=== PATIENT | female | born 1935 | race Hispanic/Latino ===

== ENCOUNTER 2017-06-05 16:45 | Emergency (ER) | payer MEDICARE ==
[2017-06-05 17:51] LABS: #Basophils 0.1 thou/uL (0.0-0.2); #Eosinphils 0.2 thou/uL (0.0-0.7); #Lymphocytes 2.6 thou/uL (1.20-3.40); #Monocytes 0.6 thou/uL (0.11-0.59); #Neutrophils 5.1 thou/uL (1.40-6.50); %Basophils 1.3 % (0.0-1.0); %Eosinophils 2.2 % (0.0-10.0); %Monocytes 7.1 % (0.0-10.0); %Neutrophils 59.3 % (42.0-75.0); Hemoglobin 13.9 g/dL (12.0-16.0); Mean Corpuscular HGB CONC 33.8 g/dL (32.0-36.0); Mean Corpuscular Hemoglobin 31.1 pg (27.0-31.0); Platelet Count 153 thou/uL (130-400); RBC Distribution Width 13.1 % (11.5-14.5); Red Blood Cell (RBC) Count 4.46 mill/uL (4.20-5.40); White Blood Cell (WBC) Count 8.6 thou/uL (4.8-10.8)
[2017-06-05 17:57] LABS: Prothrombin Time 13.7 SEC (12.0-14.7)
[2017-06-05 17:58] LABS: PTT 36.4 SEC (22.9-36.1)
[2017-06-05 18:11] LABS: Anion Gap 12 mmol/L (10-20); Bilirubin, Total 0.7 mg/dL (0.2-1.2); Calcium 9.4 mg/dL (7.8-10.44); Carbon Dioxide 24 mmol/L (23-31); Chloride 107 mmol/L (98-107); Potassium 4.1 mmol/L (3.5-5.1); Protein, Total 7.2 g/dL (6.0-8.3); Sodium 139 mmol/L (136-145)
[2017-06-05 18:13] LABS: AST (SGOT) 14 U/L (5-34)
[2017-06-05 18:23] LABS: ALT (SGPT) 15 U/L (8-55); Albumin 4.4 g/dL (3.4-4.8); Alkaline Phosphatase 61 U/L (40-150); BUN (Urea Nitrogen) 18 mg/dL (9.8-20.1); Calc. Creatinine Clearance 0 mL/min (70-130); Estimated GFR-MDRD 69; Globulin 2.9 g/dL (2.4-3.5); Glucose 103 mg/dL (83-110)
== END 2017-06-05 19:05 | disposition home or self-care (01) ==
LOC: ERS 16:45
DX: R21 Rash and other nonspecific skin eruption (principal); I10 Essential (primary) hypertension
CPT/HCPCS: 36415; 80053; 85025; 85610; 85730; 99283

== ENCOUNTER 2019-06-08 20:45 | Inpatient (IN) | payer MEDICARE ==
[2019-06-08 22:21] LABS: Bilirubin Negative (Negative); Blood, Urine Negative (Negative); Clarity Clear (Clear); Glucose, Urine (Dipstick) Normal (Negative); Leukocyte 250 Leu/uL (Negative); Mucous/LPF 2+ LPF (<2+); Nitrite Negative (Negative); Protein, Urine (Dipstick) 30 mg/dL (Neg-Trace); Squamous Epithelial 0-3 HPF (0-3); Urobilinogen Normal mg/dL (Less than 2)
[2019-06-08 22:27] LABS: Bacteria/HPF 1+ HPF (None Seen)
[2019-06-08 22:28] LABS: Calcium Oxalate Crystals 1+ HPF (None Seen)
[2019-06-08 22:43] LABS: #Eosinphils 0.2 thou/uL (0.0-0.7); #Lymphocytes 2.7 thou/uL (1.20-3.40); #Monocytes 0.5 thou/uL (0.11-0.59); #Neutrophils 4.4 thou/uL (1.40-6.50); %Basophils 0.2 % (0.0-1.0); %Eosinophils 2.1 % (0.0-10.0); %Lymphocytes 34.4 % (21.0-51.0); %Monocytes 6.2 % (0.0-10.0); %Neutrophils 57.1 % (42.0-75.0); Hemoglobin 13.8 g/dL (12.0-16.0); Mean Corpuscular HGB CONC 34.1 g/dL (32.0-36.0); Mean Corpuscular Hemoglobin 31.2 pg (27.0-31.0); Mean Corpuscular Volume 91.7 fL (78.0-98.0); Mean Platelet Volume 8.7 fL (7.4-10.4); Platelet Count 142 thou/uL (130-400); RBC Distribution Width 12.5 % (11.5-14.5); Red Blood Cell (RBC) Count 4.42 mill/uL (4.20-5.40); White Blood Cell (WBC) Count 7.7 thou/uL (4.8-10.8)
--- NOTE | 2019-06-08 22:48 | CT ---
CT Brain WO Con: 06/08/2019 10:15 PM CLINICAL HISTORY: Altered mental status. IMAGING TECHNIQUE: Multiple CT images were obtained of the brain without IV contrast. COMPARISON: None. FINDINGS: Brain: No acute infarct or hemorrhage is evident. No midline shift. Ventricles: Normal. No hydrocephalus.. Skull: Intact.. Visualized Paranasal sinuses: Clear.. Mastoid air cells:Clear. Extracranial soft tissues:Normal. IMPRESSION: No acute intracranial abnormality.
--- NOTE | 2019-06-08 22:49 | RAD ---
Chest AP view INDICATION: Globus sensation and chest pain COMPARISON: None FINDINGS: Lungs:The lungs are clear. There is suspected right azygous lobe. Cardiac silhouette:The cardiomediastinal silhouette appears within normal limits. Pulmonary vasculature:Normal Pleural spaces:No pleural effusion or pneumothorax is demonstrated. Upper abdomen:No abnormality seen. Osseous structures: No acute osseous abnormality. Additional findings:None. IMPRESSION: No acute cardiopulmonary abnormality.
[2019-06-08 22:59] LABS: ALT (SGPT) 20 U/L (8-55); AST (SGOT) 22 U/L (5-34); Albumin 4.4 g/dL (3.4-4.8); Alkaline Phosphatase 45 U/L (40-110); Anion Gap 16 mmol/L (10-20); BUN (Urea Nitrogen) 25 mg/dL (9.8-20.1); Bilirubin, Total 0.7 mg/dL (0.2-1.2); Calc. Creatinine Clearance 0 mL/min (70-130); Calcium 9.8 mg/dL (7.8-10.44); Carbon Dioxide 25 mmol/L (23-31); Chloride 104 mmol/L (98-107); Estimated GFR-MDRD 55; Globulin 2.5 g/dL (2.4-3.5); Glucose 83 mg/dL (83-110); Protein, Total 6.9 g/dL (6.0-8.3); Sodium 141 mmol/L (136-145)
[2019-06-09] MEDS ORDERED: cefTRIAXone\\ROCEPHIN 1 GM VIAL ONE (01:08)
[2019-06-09] MEDS ORDERED: Acetaminophen 650 MG Suppository PR PRN (01:49)
[2019-06-09] MEDS ORDERED: Acetaminophen 325 MG TAB PO PRN (01:49)
[2019-06-09] MEDS ORDERED: Sodium Chloride 0.45% 1,000 ML IV SCH (02:00)
[2019-06-09] MEDS ORDERED: Lorazepam 2 MG/ML VIAL SLOW IVP SCH (02:00)
[2019-06-09] MEDS ORDERED: Sodium Chloride 0.9% 1,000 ML IV SCH (02:00)
--- NOTE | 2019-06-09 02:15 | PDOC.HHP ---
Hospitalist HPI - History of Present Illness Bilateral eyelid drooping, dysphagia History of Present Illness: Patient is alert, oriented, very tangential making HPI difficult to obtain. 84/F with PMH HTN and arrhythmia (not anticoagulated) presents for bilateral eyelid drooping and dysphagia x 3 weeks. Reports for the past three weeks she has had to pull her upper eyelids up with her hands to see properly, denies any vision changes, headaches, known trauma/falls, and extremity weakness, speech changes, no new medication changes. Reports she was going to pursue eyelid surgery. Patient fixated on the idea of myasthenia gravis after potential diagnosis being mentioned in the ER. ED Course: VS: T 98.8F, BP 166/79, HR 82, RR 20, Sp02 96% RA. CT brain and CXR negative. Na+ 141 K+ 4.0 CL 104 CO2 25 BUN 25 Creat. 0.97 Glucose 83 Ca+ 9.8 AST 22 ALT 20 WBC 7.7 Hbg 13.8 Hct. 40.5 Platelets 142 UA 1+ bacteria, 250 leukocytes Given Rocephin 1gm IVPB Hospitalist ROS - Review of Systems Constitutional: denies: fever, chills Eyes: reports: other (bilateral upper eyelid drooping). denies: vision change ENT: denies: nose congestion, throat pain Respiratory: denies: cough, shortness of breath, wheezing Cardiovascular: denies: chest pain, palpitations, edema Gastrointestinal: denies: nausea, vomiting, abdominal pain, constipation Genitourinary: denies: dysuria, frequency, hematuria Musculoskeletal: denies: neck pain, back pain Skin: reports: rash (pruritic) Neurological: reports: other (dysphagia). denies: weakness, change in speech Hospitalist History - Past Medical History Source: patient Cardiac: reports: HTN, Other (arrhythmia) - Past Surgical History Past Surgical History: reports: Appendectomy, Tonsillectomy - Family History Family History: reports: hypertension - Social History Smoking Status: Never smoker Alcohol: reports: None Drugs: reports: none Living Situation: Alone Occupation: retired - Exam General Appearance: NAD, awake alert General - other findings: Disheveled Eye: PERRL Eye - other findings: bilateral ptosis ENT: normocephalic atraumatic Neck: supple, no thyromegaly, no lymphadenopathy Heart: RRR, no murmur, no gallops, no rubs, normal peripheral pulses Respiratory: CTAB, no wheezes, no rales, no ronchi Gastrointestinal - other findings: patient refused assess of abdomen, states I' m dirty Extremities: no cyanosis, no clubbing, no edema Skin - other findings: diffuse papular erythematous rash with excoriations to extremities & trunk Neurological: cranial nerve grossly intact, no focal deficits Musculoskeletal: normal tone, normal strength Psychiatric: A&O x 3, oriented to person, oriented to place, oriented to time Hospitalist Results - Labs Result Diagrams: 06/08/19 22:27 06/08/19: Lab results: WBC 7.7 thou/uL (4.8-10.8) 06/08/19: Hgb 13.8 g/dL (12.0-16.0) 06/08/19: Hct 40.5 % (36.0-47.0) 06/08/19: MCV 91.7 fL (78.0-98.0) 06/08/19: Plt Count 142 thou/uL (130-400) 06/08/19: Neutrophils % 57.1 % (42.0-75.0) 06/08/19: Sodium 141 mmol/L (136-145) 06/08/19: Potassium 4.0 mmol/L (3.5-5.1) 06/08/19: Chloride 104 mmol/L (98-107) 06/08/19: Carbon Dioxide 25 mmol/L (23-31) 06/08/19: BUN 25 mg/dL (9.8-20.1) H 06/08/19: Creatinine 0.97 mg/dL (0.6-1.1) 06/08/19: Glucose 83 mg/dL (83-110) 06/08/19: Calcium 9.8 mg/dL (7.8-10.44) 06/08/19: Total Bilirubin 0.7 mg/dL (0.2-1.2) 06/08/19 22: AST 22 U/L (5-34) 06/08/19: ALT 20 U/L (8-55) 06/08/19 22: Alkaline Phosphatase 45 U/L (40-110) 06/08/19 22: Serum Total Protein 6.9 g/dL (6.0-8.3) 06/08/19: Albumin 4.4 g/dL (3.4-4.8) 06/08/19 22: Urine Ketones 40 mg/dL (Negative) A 06/08/19 22: Urine Blood Negative (Negative) 06/08/19 22: Urine Nitrite Negative (Negative) 06/08/19 22: Ur Leukocyte Esterase 250 Regis/uL (Negative) A 06/08/19 22: Urine RBC 4-6 HPF (0-3) A 06/08/19 22: Urine WBC 11-20 HPF (0-3) A 06/08/19 22: Ur Squamous Epith Cells 0-3 HPF (0-3) 06/08/19 22: Urine Bacteria 1+ HPF (None Seen) A 06/08/19 22: - Radiology Interpretation CT scan - head Status: report reviewed by me Chest x-ray Status: report reviewed by me Hospitalist H&P A/P - Problem (1) Ptosis Code(s): H02.409 - UNSPECIFIED PTOSIS OF UNSPECIFIED EYELID Status: Acute (2) Dysphagia Code(s): R13.10 - DYSPHAGIA, UNSPECIFIED Status: Acute (3) UTI (urinary tract infection) Status: Acute (4) Arrhythmia Code(s): I49.9 - CARDIAC ARRHYTHMIA, UNSPECIFIED Status: Chronic (5) HTN (hypertension) Code(s): I10 - ESSENTIAL (PRIMARY) HYPERTENSION Status: Chronic (6) Rash Code(s): R21 - RASH AND OTHER NONSPECIFIC SKIN ERUPTION Status: Acute - Plan Plan: Neuro consulted MRI brain ordered. Give ASA 81mg. Consult PT/OT. Bedside dysphagia screening. Lipid panel with AM labs. Restart Diltiazem. Echocardiogram ordered. Carotid doppler ordered. Restart home medication when reconciled. Monitor BP. Consult WCT. Consult CM for possible APS. Awaiting urine CX, continue antibiotics.
[2019-06-09] MEDS ORDERED: Aspirin Chewable 81 MG TAB PO SCH (03:00)
[2019-06-09 05:17] VITALS: BMI 25.4
[2019-06-09 08:23] LABS: Anion Gap 16 mmol/L (10-20); BUN (Urea Nitrogen) 21 mg/dL (9.8-20.1); Calc. Creatinine Clearance 50 mL/min (70-130); Calcium 8.8 mg/dL (7.8-10.44); Carbon Dioxide 23 mmol/L (23-31); Cardiac Risk 2.8 (Less than 4.5); Chloride 107 mmol/L (98-107); Cholesterol 118 mg/dl (< 200 Desired); Estimated GFR-MDRD 69; Glucose 70 mg/dL (83-110); HDL Cholesterol 42 mg/dL (>60 Neg Risk); INR-International Normal Ratio 1.1; LDL Cholesterol, Calculated 63 mg/dL; Potassium 3.5 mmol/L (3.5-5.1); Prothrombin Time 14.3 SEC (12.0-14.7); Sodium 142 mmol/L (136-145); Triglycerides 64 mg/dL (Less than 150)
[2019-06-09 08:24] LABS: PTT 37.7 SEC (22.9-36.1)
[2019-06-09 08:31] LABS: Mean Corpuscular HGB CONC 34.1 g/dL (32.0-36.0); Mean Corpuscular Hemoglobin 31.1 pg (27.0-31.0); Mean Corpuscular Volume 91.3 fL (78.0-98.0); Mean Platelet Volume 9.7 fL (7.4-10.4); Platelet Count 101 thou/uL (130-400); RBC Distribution Width 12.7 % (11.5-14.5); Red Blood Cell (RBC) Count 4.17 mill/uL (4.20-5.40); White Blood Cell (WBC) Count 6.3 thou/uL (4.8-10.8)
[2019-06-09] MEDS: Famotidine/PF 20 mg/2ml Vial SLOW IVP SCH ×2 (08:44→23:12)
[2019-06-09 08:45] LABS: Eosinophils 2 % (0-10); Large Platelets SLIGHT; Lymphocytes 28 % (21-51); MDiff Complete? YES; Monocytes 6 % (0-10); Neutrophil 51 % (42-75); Platelet Morphology Comment Appears Decreased; Reactive Lymphocytes 13 % (0-10)
[2019-06-09] MEDS: Metoprolol Tartrate 50 MG TAB PO SCH ×2 (08:45→10:25)
[2019-06-09] MEDS ORDERED: Prevnar 13-Val Conj/PF 0.5 ML SYRINGE IM ONE (09:00)
--- NOTE | 2019-06-09 10:03 | ULT ---
US Carotid Doppler STANDARD History: Altered mental status Comparison: None. Findings: Real-time grayscale, color, and spectral analysis of the bilateral extracranial carotid and vertebral arteries was performed. No elevated peak systolic velocities within the internal carotid arteries. Antegrade flow both verteb ral arteries. Mild atherosclerotic plaque both proximal internal carotid arteries and carotid bulbs. Impression: No hemodynamically significant stenosis.
--- NOTE | 2019-06-09 10:18 | CON ---
DATE OF TELEMEDICINE CONSULTATION: 06/09/2019 CHIEF COMPLAINT: Ptosis and difficulty swallowing. HISTORY OF PRESENT ILLNESS: The patient is an 84-year-old lady with psychiatric history, mainly paranoia. She comes in with difficulty swallowing. She says food does not go down and she has lost about 20 pounds of weight within 2 weeks. She feels pain in the back of the neck, head dropped, she got a collar and tries to use it. She also has bilateral ptosis of her eyelids and cannot see well. She used to be quite independent, but generally she has become weaker; therefore, she is now needing additional help as well with day-to-day activities. PREVIOUS MEDICAL HISTORY: Per chart, the patient has medical problems including hypertension, cardiac arrhythmia, and some paranoia. PAST SURGICAL HISTORY: Appendectomy, tonsillectomy. FAMILY HISTORY: Positive for hypertension. No neurological disease in the family. SOCIAL HISTORY: She is nonsmoker. No alcohol. Lives with friends. REVIEW OF SYSTEMS: PULMONARY: Negative for shortness of breath or cough. GI: Negative for nausea or vomiting, but positive for swallowing difficulties. ENT: Positive for difficulty with swallowing. OPHTHALMOLOGIC: Positive for vision issues and ptosis. DERMATOLOGIC: Positive for scabies. NEUROLOGIC: Positive for generalized weakness, ptosis, and difficulty with swallowing. LABORATORY DATA: Current reports, laboratory workup; white count 6.3, hemoglobin 13, hematocrit 38.1, and platelet count 101. PT 14.3, INR 1.1, and PTT 37.7. Chemistry; sodium 142, potassium 3.5, chloride 107, bicarb 23, BUN 21, creatinine 0.8, and glucose 70. Urinalysis is positive for leukocyte esterase. I requested an MRI of the brain. Her chest x-ray was completed, results were reviewed. Her CT of the head did not show any acute intracranial abnormality. Her carotid Doppler was just completed pending reports. Chest x-ray did not show any acute cardiopulmonary abnormality. PHYSICAL EXAMINATION: VITAL SIGNS: Temperature 98.4, pulse 79, respiratory rate 18, O2 sats 97, and blood pressure 161/63. GENERAL APPEARANCE: Well-built, well-nourished lady, who seems to be somewhat in distress and complaining of some weakness. CHEST: Clear vesicular breathing. CARDIOVASCULAR: S1 and S2 heard. NEUROLOGIC: Higher intellectual functions, oriented to time, place, and person and appropriate in conversation. Cranial nerves, she has bilateral ptosis. Pupils are 4 mm, reactive. Extraocular movements, she has ophthalmoplegia in the right eye with difficulty with abduction. No difficulty with adduction in upward or downward gaze in the right eye. Left eye is normal with extraocular movements. Sensory exam of the face is normal bilaterally and no facial asymmetry noted. Tongue midline. No atrophy. Normal elevation of palate. Motor; bulk normal, tone normal, strength 4/5 throughout due to decreased effort. General muscle groups examined are deltoid, biceps, triceps, wrist extension and flexion, finger extension and flexion bilaterally. Sensory, normal to touch bilaterally. Deep tendon reflexes 1+ throughout. Cerebellar, normal [id number] and [id number]. She had difficulty sitting up from in the bed. IMPRESSION: The patient is an 84-year-old lady with a psychiatric history of paranoia. She has difficulty with swallowing as well as ptosis bilaterally and has generalized weakness. Differential diagnosis is oculopharyngeal muscular dystrophy, but she does not have specific proximal muscle weakness to go with this or a family history. Also, in the differential is possible brainstem event causing ophthalmoplegia, but bilateral ptosis is not seen normally. She certainly has atypical presentation for even myasthenia, however, it is certainly under consideration at this time. TREATMENT RECOMMENDATIONS: 1. MRI of the brain to make sure there are no RN ENDOSCOPY lesions. 2. We will request dysphagiagram, Speech Therapy evaluation, and a barium swallow. 3. I have also requested myasthenia panel for lab reports. Based on her results , we can proceed with next plan of treatment. I will see her again tomorrow. Job ID: [id number] [facility]
[2019-06-09] MEDS ORDERED: Permethrin 5% Cream 60 GM TUBE TOP SCH (12:30)
--- NOTE | 2019-06-09 12:35 | PDOC.HOSPP ---
- Subjective Encounter Date: 06/09/19 Encounter Time: 12:33 Subjective: Ms. Ortiz was seen today in follow-up. She continues to have weakness in her neck muscles, and her eyelids. She also notes some itching, but she says it due to being nervous. - Objective Vital Signs & Weight: Vital Signs (12 hours) Temp Pulse Resp BP Pulse Ox 06/09/19 08:00 97 06/09/19 07:47 98.4 F 79 18 161/63 H 97 06/09/19 03:35 97 Weight Weight 130 lb 8 oz Result Diagrams: 06/09/19 07:07 06/09/19 07:07 Additional Labs: Accuchecks 06/08/19 22:30 POC Glucose 88 Hospitalist ROS - Medication Medications: Active Medications Generic Name Dose Route Start Last Admin Trade Name Freq PRN Reason Stop Dose Admin Famotidine 20 mg 06/09/19 09:00 06/09/19 08:44 Pepcid SLOW IVP 20 mg Q12HR SHELTON Administration Sodium Chloride 1,000 mls @ 65 mls/hr 06/09/19 02:00 06/09/19 02:36 Normal Saline 0.9% IV 06/09/19 17:23 1,000 mls .[id number] SHELTON Administration Metoprolol Tartrate 50 mg 06/09/19 09:00 06/09/19 10:25 Lopressor PO Not Given BID SHELTON - Exam Eye: PERRL Heart: RRR, no murmur, no gallops, no rubs, normal peripheral pulses Respiratory: CTAB, no wheezes, no rales, no ronchi, normal chest expansion Gastrointestinal: soft, non-tender, non-distended, normal bowel sounds, no palpable masses, no hepatomegaly Extremities: no cyanosis Skin: normal turgor (+ excoriated lesions on the pulms and ankles,) Neurological: no new deficit Hosp A/P (1) Scabies Status: Acute (2) Weakness Code(s): R53.1 - WEAKNESS Status: Acute (3) HTN (hypertension) Code(s): I10 - ESSENTIAL (PRIMARY) HYPERTENSION Status: Chronic - Plan * Weakness in her neck, and Ptosis- awaiting MRI for further evaluation * Studies to exclude or include Myasthenia are pending * HTN- blood pressure is slightly elevated- will re-start Cardizem as well * Probable Scabies- will treat with Elimite, and continue contact isolation * MRI tomorrow
[2019-06-09 14:49] LABS: Reference Lab Name LABCORP
[2019-06-09 14:50] LABS: Ref Lab Test Ordered MYASTHENIA PANEL
[2019-06-09] MEDS ORDERED: cloNIDine 0.1 MG TAB PO PRN (16:40)
[2019-06-09] MEDS ORDERED: CLONIDINE 0.1 MG PO PRN (17:15)
[2019-06-09] MEDS: CLONIDINE 0.1 MG PO PRN (17:50)
[2019-06-09] MEDS ORDERED: Haloperidol Lactate 5 MG/ML VIAL SLOW IVP SCH (19:00)
[2019-06-09] MEDS ORDERED: Metoprolol Tartrate 25 MG TAB PO SCH (21:00)
[2019-06-09] MEDS: cefTRIAXone\\ROCEPHIN 1 GM in Sodium Chloride 0.9% 100 ML IVPB SCH (23:11)
[2019-06-09] MEDS: Donepezil HCl 5 MG TAB PO SCH (23:13)
[2019-06-10] MEDS: CLONIDINE 0.1 MG PO PRN ×3 (00:05→20:20)
[2019-06-10] MEDS: METOPROLOL TARTRATE 50 MG PO SCH ×3 (00:30→22:35)
[2019-06-10] MEDS: DILTIAZEM CD 180 MG CAPSULE PO SCH (09:07)
[2019-06-10] MEDS: Famotidine 20 MG TAB PO SCH (09:08)
[2019-06-10] MEDS ORDERED: Haloperidol Lactate 5 MG/ML VIAL SLOW IVP PRN (09:59)
--- NOTE | 2019-06-10 10:42 | PDOC.HOSPP ---
- Subjective Encounter Date: 06/10/19 Encounter Time: 10:39 Subjective: Ms. Ortiz was seen today in follow-up of Ptosis and neck weakness. She does not have any new complaints. She says yesterday behavior was the resulted from her " feeling ignored". She says she went without her medication ( Clonidine) and she " kept asking for it," and "no-one was listening to her, and know one came to see her". She says she said she threatened suicide to " get there attention". She does not have any new complaints today. - Objective Vital Signs & Weight: Vital Signs (12 hours) Temp Pulse Resp BP BP Pulse Ox 06/10/19 09:11 97.9 F 70 16 201/90 H 06/10/19 01:25 62 153/72 H 06/10/19 00:00 97.6 F 78 18 208/75 H 96 Weight Admit Weight 130 lb 8 oz Weight 130 lb 8 oz Result Diagrams: 06/09/19 07:07 06/09/19 07:07 Hospitalist ROS - Medication Medications: Active Medications Generic Name Dose Route Start Last Admin Trade Name Freq PRN Reason Stop Dose Admin Donepezil HCl 5 mg 06/09/19 21:00 06/09/19 23:13 Aricept PO 5 mg HS SHELTON Administration Famotidine 20 mg 06/10/19 09:00 06/10/19 09:08 Pepcid PO Not Given DAILY SHELTON Ceftriaxone Sodium 1 gm/ 100 mls @ 200 mls/hr 06/09/19 21:00 06/09/19 23:11 Sodium Chloride IVPB 06/12/19 21:29 100 mls Q24HR SHELTON Administration Diltiazem Cd 180 Mg 1 each 06/10/19 09:00 06/10/19 09:07 Capsule PO 1 each DAILY SHELTON Administration Patient's Home 0 each 06/09/19 21:00 06/10/19 09:07 Medication PO 1 each Metoprolol Tartrate BID SHELTON Administration 50 Mg Patient's Home 0 each 06/09/19 17:15 06/10/19 09:38 Medication Clonidine PO 1 each 0.1 Mg Q12H PRN Administration SBP GREATER THAN 160 - Exam Eye: PERRL Heart: RRR, no murmur, no gallops, no rubs, normal peripheral pulses Respiratory: CTAB, no wheezes, no rales, no ronchi, normal chest expansion Gastrointestinal: soft, non-tender, non-distended, normal bowel sounds, no palpable masses, no hepatomegaly Extremities: no cyanosis, no clubbing, no edema Hosp A/P (1) Scabies Status: Acute (2) Weakness Code(s): R53.1 - WEAKNESS Status: Acute (3) HTN (hypertension) Code(s): I10 - ESSENTIAL (PRIMARY) HYPERTENSION Status: Chronic - Plan * Weakness in her neck, and Ptosis-plan is for MRI , once she is off isolation from scabies * Work-up for Myesthenia is in progress * HTN- blood pressure is not well controlled- continue Cardizem and Clonidine as needed * Suicidal ideation? i doubt she is actually suicidal. I suspect she has an underlying psychiatric disorder. Will continue the sitter, and get [facility] evaluation prior to discharge
--- NOTE | 2019-06-10 15:24 | MRI ---
MRI Brain WO Con History: Ptosis Comparison: CT brain 2 days prior Findings: On diffusion weighted imaging sequence there are no abnormal foci of diffusion restriction. This is confirmed on the ADC map. On the susceptibility weighted imaging sequence there are no abnormal foci of acute hemorrhage. Punctate mild microvascular ischemic change, chronic. No midline shift. No mass effect. [place] flow voids are maintained. Impression: No acute intracranial abnormality.
[2019-06-10] MEDS: Donepezil HCl 5 MG TAB PO SCH ×2 (22:30→22:35)
[2019-06-10] MEDS: cefTRIAXone\\ROCEPHIN 1 GM in Sodium Chloride 0.9% 100 ML IVPB SCH (22:31)
[2019-06-11] MEDS: CLONIDINE 0.1 MG PO PRN ×2 (08:20→22:27)
[2019-06-11] MEDS: Famotidine 20 MG TAB PO SCH (08:26)
--- NOTE | 2019-06-11 09:31 | PDOC.HOSPP ---
- Subjective Encounter Date: 06/11/19 Encounter Time: 09:29 Subjective: Ms. Ortiz was seen today in follow-up of ptosis and head and neck muscle weakness. She does not have any complaints. - Objective Vital Signs & Weight: Vital Signs (12 hours) Temp Pulse Resp BP BP Pulse Ox 06/11/19 08:00 72 18 199/72 H 96 06/11/19 03:34 97.7 F 66 20 187/74 H 96 06/10/19 23:23 98.6 F 64 14 129/60 94 L Weight Admit Weight 130 lb 8 oz Weight 130 lb 8 oz Result Diagrams: 06/09/19 07:07 06/09/19 07:07 Hospitalist ROS - Medication Medications: Active Medications Generic Name Dose Route Start Last Admin Trade Name Freq PRN Reason Stop Dose Admin Donepezil HCl 5 mg 06/09/19 21:00 06/10/19 22:30 Aricept PO Not Given HS SHELTON Famotidine 20 mg 06/10/19 09:00 06/11/19 08:26 Pepcid PO Not Given DAILY SHELTON Ceftriaxone Sodium 1 gm/ 100 mls @ 200 mls/hr 06/09/19 21:00 06/10/19 22:31 Sodium Chloride IVPB 06/12/19 21:29 100 mls Q24HR SHELTON Administration Diltiazem Cd 180 Mg 1 each 06/10/19 09:00 06/10/19 09:07 Capsule PO 1 each DAILY SHE[place]TON Administration Patient's Home 0 each 06/09/19 21:00 06/10/19 22:35 Medication PO 1 each Metoprolol Tartrate BID SHELTON Administration 50 Mg Patient's Home 0 each 06/09/19 17:15 06/11/19 08:20 Medication Clonidine PO 1 each 0.1 Mg Q12H PRN Administration SBP GREATER THAN 160 - Exam Eye: PERRL Heart: RRR, no murmur, no gallops, no rubs, normal peripheral pulses Respiratory: CTAB, no wheezes, no rales, no ronchi, normal chest expansion Gastrointestinal: soft, non-tender, non-distended, normal bowel sounds, no palpable masses, no hepatomegaly Extremities: no cyanosis, no clubbing, no edema Hosp A/P (1) Scabies Status: Acute (2) Weakness Code(s): R53.1 - WEAKNESS Status: Acute (3) HTN (hypertension) Code(s): I10 - ESSENTIAL (PRIMARY) HYPERTENSION Status: Chronic (4) UTI (urinary tract infection) Status: Acute - Plan * Weakness in her neck, and Ptosis-MRI results noted * Work-up for Myesthenia is in progress and await further recommendations for Neurology * Scabies- has been treated * HTN- blood pressure is labile- will add scheduled hydralazine * UTI- on Rocephin * Continue sitter
[2019-06-11] MEDS: METOPROLOL TARTRATE 50 MG PO SCH ×2 (09:42→22:27)
[2019-06-11] MEDS: DILTIAZEM CD 180 MG CAPSULE PO SCH (09:47)
--- NOTE | 2019-06-11 14:38 | RAD ---
Modified barium swallow: 06/11/2019 HISTORY: Unspecified dysphasia, feeding difficulties FINDINGS: A modified barium swallow was performed in conjunction with a member vision and speech path ology. The patient was imaged in the lateral projection swallowing various consistencies of barium. Detailed assessment is limited secondary to lack of patient cooperation. The patient was unable to in gest adequate volume for detailed assessment. In addition, the patient continued to talk and move while ingesting the various consistencies of barium. Penetration is noted within liquids. No aspiration is seen. A barium swallow was not performed secondary to inability of the patient to cooperate for barium swal low at this time. IMPRESSION: Penetration with thin liquids. Please see above discussion.
[2019-06-11] MEDS: hydrALAZINE 25 MG TAB PO SCH ×3 (15:42→22:47)
[2019-06-11] MEDS: Pyridostigmine Bromide IR 60 MG TAB PO SCH (18:28)
[2019-06-11] MEDS: Donepezil HCl 5 MG TAB PO SCH (22:26)
[2019-06-11] MEDS: cefTRIAXone\\ROCEPHIN 1 GM in Sodium Chloride 0.9% 100 ML IVPB SCH (22:47)
[2019-06-12] MEDS: Pyridostigmine Bromide IR 60 MG TAB PO SCH ×2 (02:11→10:14)
[2019-06-12] MEDS: DILTIAZEM CD 180 MG CAPSULE PO SCH (06:30)
[2019-06-12] MEDS: METOPROLOL TARTRATE 50 MG PO SCH ×2 (11:00→21:15)
[2019-06-12] MEDS: Famotidine 20 MG TAB PO SCH (12:12)
[2019-06-12] MEDS: hydrALAZINE 25 MG TAB PO SCH ×2 (12:13→19:20)
--- NOTE | 2019-06-12 13:52 | PDOC.HOSPP ---
- Subjective Encounter Date: 06/12/19 Encounter Time: 13:50 Subjective: Ms. 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 She was started on Mestinon last night with good results. She is able to open her eyes better. - Objective Vital Signs & Weight: Vital Signs (12 hours) Temp Pulse Resp BP BP Pulse Ox 06/12/19 11:30 97.8 F 74 16 141/63 H 100 06/12/19 07:40 98.0 F 69 16 165/78 H 97 06/12/19 04:00 98.4 F 92 18 193/84 H 92 L Weight Admit Weight 130 lb 8 oz Weight 130 lb 8 oz I&O: 06/11/19 06/12/19 06/13/19 06:59 06:59 06:59 Intake Total 480 120 Balance 480 120 Result Diagrams: 06/09/19 07:07 06/09/19 07:07 Hospitalist ROS - Medication Medications: Active Medications Generic Name Dose Route Start Last Admin Trade Name Freq PRN Reason Stop Dose Admin Donepezil HCl 5 mg 06/09/19 21:00 06/11/19 22:26 Aricept PO Not Given HS SHELTON Famotidine 20 mg 06/10/19 09:00 06/12/19 12:12 Pepcid PO Not Given DAILY SHELTON Hydralazine HCl 25 mg 06/11/19 15:00 06/12/19 12:13 Apresoline PO Not Given TID SHELTON Ceftriaxone Sodium 1 gm/ 100 mls @ 200 mls/hr 06/09/19 21:00 06/11/19 22:47 Sodium Chloride IVPB 06/12/19 21:29 100 mls Q24HR SHELTON Administration Diltiazem Cd 180 Mg 1 each 06/10/19 09:00 06/12/19 06:30 Capsule PO 1 each DAILY SHELTON Administration Patient's Home 0 each 06/09/19 21:00 06/11/19 22:27 Medication PO 1 each Metoprolol Tartrate BID SHELTON Administration 50 Mg Patient's Home 0 each 06/09/19 17:15 06/11/19 22:27 Medication Clonidine PO 1 each 0.1 Mg Q12H PRN Administration SBP GREATER THAN 160 Pyridostigmine [place] 60 mg 06/11/19 18:00 06/12/19 10:14 Mestinon PO 60 mg 0200,1000,1800 SHELTON Administration - Exam Eye: PERRL Heart: RRR, no murmur, no gallops, no rubs, normal peripheral pulses Respiratory: CTAB, no wheezes, no rales, no ronchi, normal chest expansion, no tachypnea, normal percussion Gastrointestinal: soft, non-tender, non-distended, normal bowel sounds, no palpable masses, no hepatomegaly, no splenomegaly, no bruit Hosp A/P (1) Weakness Code(s): R53.1 - WEAKNESS Status: Acute (2) HTN (hypertension) Code(s): I10 - ESSENTIAL (PRIMARY) HYPERTENSION Status: Chronic (3) UTI (urinary tract infection) Status: Acute (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 * HTN- blood pressure is trending down * Continue sitter * UTI- treated- cultures are negative can discontinue antibiotics * Still no family has been identified- she may need placement
[2019-06-12] MEDS: CLONIDINE 0.1 MG PO PRN (15:00)
--- NOTE | 2019-06-12 22:36 | CON ---
DATE OF CONSULTATION: 06/12/2019 IMPRESSION: Myasthenia gravis. PLAN: 1. Continue Mestinon 60 mg q.8 hours. 2. Solu-Medrol 125mg IV piggyback q.12 hours. 3. Acetylcholine receptor antibody. 4. Probable conversion to oral prednisone. HISTORY OF PRESENT ILLNESS: Ms. Diana Duran is an 84-year-old woman, who came in with complaints of some progressive weakness. About a month ago, she started noticing bilateral ptosis. She was seen by Dr. Hernadez and advised that she might need no surgery to correct her eyelids. As the days went on, she started noticing increasing problems with being able to chew her food. She started having some choking episodes. She also noted a change in the quality of her voice. She did not note any weakness in her arms or legs. She was subsequently admitted. She was seen by Dr. Mckeon. I was brought onto the case yesterday by the nurse, who had been evaluating her. We ordered Mestinon last night based on the symptomatology. Her ptosis improved after a dose of Mestinon. She has been a bit stubborn about taking her medication. She also was refusing to work with a speech therapist to assess her swallowing capability. PAST HISTORY: Lumbar disk disease. ALLERGIES: NONE. SOCIAL HISTORY: No tobacco or alcohol. FAMILY HISTORY: Noncontributory. MEDICATION LIST: Reviewed. REVIEW OF SYSTEMS: Ten-system review of systems is otherwise negative. PHYSICAL EXAMINATION: GENERAL: She is a reasonably healthy-appearing elderly lady, who is in no acute distress. VITAL SIGNS: Blood pressure 166/79, pulse 82, respirations 20, and temperature 98.6. HEENT: Pupils are equal and reactive. Conjunctivae clear. Oropharynx clear. Cranium, normocephalic and atraumatic. She has some asymmetric ptosis that is a bit worse on the right, which partially covers her pupil. NECK: Supple. No lymphadenopathy. EXTREMITIES: No cyanosis, clubbing, or edema. NEUROLOGIC: She is alert and cooperative. Her speech is fluent and clear. Cranial nerve exam was only remarkable for both neck flexion and extension weakness. She had some eyelid closure weakness bilaterally as well. Sensation is intact. Motor exam showed 4/5 strength in the deltoid and biceps, hip flexion is 4-/5, ankle flexion is 4+/5. No tremor. Dysmetria is present. SUMMARY: Given her response to Mestinon and overall clinical picture, I am fairly certain she has myasthenia gravis. I will go ahead and start her on steroids and follow in her care. Job ID: [id number] [id number]
[2019-06-12] MEDS: cefTRIAXone\\ROCEPHIN 1 GM in Sodium Chloride 0.9% 100 ML IVPB SCH (22:45)
[2019-06-12] MEDS: Donepezil HCl 5 MG TAB PO SCH (22:45)
[2019-06-12] MEDS: methylPREDNISolone Sod Succ/PF 125 MG/2 ML VIAL IVP SCH (22:50)
[2019-06-13] MEDS: hydrALAZINE 25 MG TAB PO SCH ×3 (01:20→22:06)
[2019-06-13] MEDS: Pyridostigmine Bromide IR 60 MG TAB PO SCH ×4 (01:26→18:11)
--- NOTE | 2019-06-13 10:45 | PDOC.HOSPP ---
- Subjective Encounter Date: 06/13/19 Encounter Time: 10:43 Subjective: Ms. Ortiz was seen today in follow-up of myesthenia gravis. She has a little more drooping of her eyelids today but she admits she did not take the " other medications" for Myesthenia, because she felt it would be too much. - Objective Vital Signs & Weight: Vital Signs (12 hours) Pulse BP 06/13/19 01:20 79 155/70 H Weight Admit Weight 130 lb 8 oz Weight 130 lb 8 oz I&O: 06/12/19 06/13/19 06/14/19 06:59 06:59 06:59 Intake Total 480 120 Balance 480 120 Result Diagrams: 06/09/19 07:07 06/09/19 07:07 Hospitalist ROS - Medication Medications: Active Medications Generic Name Dose Route Start Last Admin Trade Name Freq PRN Reason Stop Dose Admin Donepezil HCl 5 mg 06/09/19 21:00 06/12/19 22:45 Aricept PO Not Given HS SHE[facility] Famotidine 20 mg 06/10/19 09:00 06/12/19 12:12 Pepcid PO Not Given DAILY [facility] Hydralazine HCl 25 mg 06/11/19 15:00 06/13/19 01:20 Apresoline PO Not Given TID SHE[facility] Methylprednisolone Sodium Succinate 125 mg 06/12/19 21:00 06/12/19 22:50 Solu-Medrol IVP Not Given BID SHE[facility] Diltiazem Cd 180 Mg 1 each 06/10/19 09:00 06/12/19 06:30 Capsule PO 1 each DAILY [facility] Administration Patient's Home 0 each 06/09/19 21:00 06/12/19 21:15 Medication PO Not Given Metoprolol Tartrate BID [facility] 50 Mg Patient's Home 0 each 06/09/19 17:15 06/12/19 15:00 Medication Clonidine PO 1 each 0.1 Mg Q12H PRN Administration SBP GREATER THAN 160 Pyridostigmine [place] 60 mg 06/11/19 18:00 06/13/19 01:26 Mestinon PO 60 mg 0200,1000,1800 SHE[facility] Administration - Exam Eye: PERRL Heart: RRR, no murmur, no gallops, no rubs, normal peripheral pulses Respiratory: CTAB, no wheezes, no rales, no ronchi, normal chest expansion Gastrointestinal: soft, non-tender, non-distended, normal bowel sounds, no palpable masses, no hepatomegaly Extremities: no cyanosis Hosp A/P (1) MG with thymoma (myasthena gravis) Code(s): G70.00 - MYASTHENIA GRAVIS WITHOUT (ACUTE) EXACERBATION; D15.0 - BENIGN NEOPLASM OF THYMUS Status: Acute (2) Weakness Code(s): R53.1 - WEAKNESS Status: Acute (3) HTN (hypertension) Code(s): I10 - ESSENTIAL (PRIMARY) HYPERTENSION Status: Chronic (4) UTI (urinary tract infection) Status: Acute - Plan * Probable Myasthenia- Continue Mestinon and prednisone, she says she now knows the improtance of taking them both * HTN- blood pressure is better * Continue sitter * UTI- resolved * She is stable for nursing home placement
[2019-06-13] MEDS: METOPROLOL TARTRATE 50 MG PO SCH ×2 (11:00→22:05)
[2019-06-13] MEDS: DILTIAZEM CD 180 MG CAPSULE PO SCH (14:24)
[2019-06-13] MEDS: Famotidine 20 MG TAB PO SCH (16:15)
[2019-06-13] MEDS: methylPREDNISolone Sod Succ/PF 125 MG/2 ML VIAL IVP SCH ×2 (16:15→22:05)
[2019-06-13] MEDS: Donepezil HCl 5 MG TAB PO SCH (22:06)
[2019-06-14] MEDS: Pyridostigmine Bromide IR 60 MG TAB PO SCH ×3 (02:48→17:10)
--- NOTE | 2019-06-14 08:35 | PDOC.HOSPP ---
- Subjective Encounter Date: 06/14/19 Encounter Time: 08:34 Subjective: Ms. Ortiz was seen today in follow-up of Myesthenia gravis. She notes some continues drooping of her eyelids, but no other new complaints. - Objective Vital Signs & Weight: Vital Signs (12 hours) Temp Pulse Resp BP BP Pulse Ox 06/14/19 07:35 98.5 F 88 20 162/70 H 97 06/14/19 04:00 97.3 F L 67 16 164/68 H 96 06/13/19 23:57 98.4 F 54 L 16 121/55 L 95 06/13/19 22:06 73 158/65 H Weight Admit Weight 130 lb 8 oz Weight 130 lb 8 oz I&O: 06/13/19 06/14/19 06/15/19 06:59 06:59 06:59 Intake Total 120 370 Balance 120 370 Result Diagrams: 06/09/19 07:07 06/09/19 07:07 Hospitalist ROS - Medication Medications: Active Medications Generic Name Dose Route Start Last Admin Trade Name Freq PRN Reason Stop Dose Admin Donepezil HCl 5 mg 06/09/19 21:00 06/13/19 22:06 Aricept PO Not Given HS [facility] Famotidine 20 mg 06/10/19 09:00 06/13/19 16:15 Pepcid PO Not Given DAILY [facility] Hydralazine HCl 25 mg 06/11/19 15:00 06/13/19 22:06 Apresoline PO Not Given TID [facility] Methylprednisolone Sodium Succinate 125 mg 06/12/19 21:00 06/13/19 22:05 Solu-Medrol IVP 125 mg BID [facility] Administration Diltiazem Cd 180 Mg 1 each 06/10/19 09:00 06/13/19 14:24 Capsule PO 1 each DAILY [facility] Administration Patient's Home 0 each 06/09/19 21:00 06/13/19 22:05 Medication PO 1 each Metoprolol Tartrate BID [facility] Administration 50 Mg Patient's Home 0 each 06/09/19 17:15 06/12/19 15:00 Medication Clonidine PO 1 each 0.1 Mg Q12H PRN Administration SBP GREATER THAN 160 Pyridostigmine [place] 60 mg 06/11/19 18:00 06/14/19 02:48 Mestinon PO 60 mg 0200,1000,1800 [facility] Administration - Exam Eye: PERRL Heart: RRR, no murmur, no gallops, no rubs, normal peripheral pulses Respiratory: CTAB, no wheezes, no rales, no ronchi, normal chest expansion, no tachypnea, normal percussion Gastrointestinal: soft, non-tender, non-distended, normal bowel sounds, no palpable masses, no hepatomegaly Extremities: no cyanosis, no clubbing, no edema Hosp A/P (1) MG with thymoma (myasthena gravis) Code(s): G70.00 - MYASTHENIA GRAVIS WITHOUT (ACUTE) EXACERBATION; D15.0 - BENIGN NEOPLASM OF THYMUS Status: Acute (2) Weakness Code(s): R53.1 - WEAKNESS Status: Acute (3) HTN (hypertension) Code(s): I10 - ESSENTIAL (PRIMARY) HYPERTENSION Status: Chronic (4) UTI (urinary tract infection) Status: Acute - Plan * Probable Myasthenia- Continue Mestinon and solumedrol * HTN- blood pressure is a bit elevated- will monitor the trend today- may need to continue titrating medication * She was evaluated by [facility]- she is not felt to be suicidal, and I agree with that assessment- will discontinue sitter * Ms. Ortiz will not disclose who her family members are. She says they do not have her best interest in mind. * Awaiting [facility] placement- she continues to have facial muscle weakness and some generalized muscle weakness as well.
[2019-06-14] MEDS: Famotidine 20 MG TAB PO SCH (09:40)
[2019-06-14] MEDS: METOPROLOL TARTRATE 50 MG PO SCH ×2 (09:40→22:36)
[2019-06-14] MEDS: hydrALAZINE 25 MG TAB PO SCH ×3 (09:42→21:04)
[2019-06-14] MEDS: DILTIAZEM CD 180 MG CAPSULE PO SCH (09:44)
[2019-06-14] MEDS: methylPREDNISolone Sod Succ/PF 125 MG/2 ML VIAL IVP SCH ×2 (11:04→22:36)
[2019-06-14] MEDS: Donepezil HCl 5 MG TAB PO SCH (21:04)
[2019-06-15] MEDS: Pyridostigmine Bromide IR 60 MG TAB PO SCH ×3 (02:36→17:20)
[2019-06-15] MEDS: CLONIDINE 0.1 MG PO PRN (09:00)
[2019-06-15] MEDS: hydrALAZINE 25 MG TAB PO SCH ×3 (09:04→21:40)
[2019-06-15] MEDS: Famotidine 20 MG TAB PO SCH (09:04)
[2019-06-15] MEDS: methylPREDNISolone Sod Succ/PF 125 MG/2 ML VIAL IVP SCH ×2 (10:02→10:36)
--- NOTE | 2019-06-15 11:10 | PDOC.HOSPP ---
- Subjective Encounter Date: 06/15/19 Encounter Time: 11:08 Subjective: Ms. Ortiz was seen today in follow-up of Myesthenia gravis. She does not have any complaints. - Objective Vital Signs & Weight: Vital Signs (12 hours) Temp Pulse Resp BP BP Pulse Ox 06/15/19 09:04 60 06/15/19 07:48 97.6 F 60 16 139/53 L 96 06/15/19 04:18 97.6 F 62 16 137/53 L 95 Weight Admit Weight 130 lb 8 oz Weight 130 lb 8 oz I&O: 06/14/19 06/15/19 06/16/19 06:59 06:59 06:59 Intake Total 370 720 Balance 370 720 Result Diagrams: 06/09/19 07:07 06/09/19 07:07 Hospitalist ROS - Medication Medications: Active Medications Generic Name Dose Route Start Last Admin Trade Name Freq PRN Reason Stop Dose Admin Donepezil HCl 5 mg 06/09/19 21:00 06/14/19 21:04 Aricept PO Not Given HS [facility] Famotidine 20 mg 06/10/19 09:00 06/15/19 09:04 Pepcid PO Not Given DAILY [facility] Hydralazine HCl 25 mg 06/11/19 15:00 06/15/19 09:04 Apresoline PO Not Given TID [facility] Diltiazem Cd 180 Mg 1 each 06/10/19 09:00 06/14/19 09:44 Capsule PO 1 each DAILY [facility] Administration Patient's Home 0 each 06/09/19 21:00 06/14/19 22:36 Medication PO Not Given Metoprolol Tartrate BID [place] 50 Mg Patient's Home 0 each 06/09/19 17:15 06/12/19 15:00 Medication Clonidine PO 1 each 0.1 Mg Q12H PRN Administration SBP GREATER THAN 160 Pyridostigmine [place] 60 mg 06/11/19 18:00 06/15/19 10:02 Mestinon PO 60 mg 0200,1000,1800 [facility] Administration - Exam Eye: PERRL Heart: RRR, no murmur, no gallops, no rubs, normal peripheral pulses Respiratory: CTAB, no wheezes, no rales, no ronchi, normal chest expansion, no tachypnea, normal percussion Gastrointestinal: soft, non-tender, non-distended, normal bowel sounds, no palpable masses, no hepatomegaly, no splenomegaly Extremities: no cyanosis Hosp A/P (1) MG with thymoma (myasthena gravis) Code(s): G70.00 - MYASTHENIA GRAVIS WITHOUT (ACUTE) EXACERBATION; D15.0 - BENIGN NEOPLASM OF THYMUS Status: Acute (2) Weakness Code(s): R53.1 - WEAKNESS Status: Acute (3) HTN (hypertension) Code(s): I10 - ESSENTIAL (PRIMARY) HYPERTENSION Status: Chronic - Plan * Probable Myasthenia- Continue Mestinon and will change her to oral Prednisone * HTN- blood pressure is better * deconditioning- continue PT/OT and await fpc
[2019-06-15] MEDS: METOPROLOL TARTRATE 50 MG PO SCH ×2 (12:26→21:36)
[2019-06-15] MEDS: DILTIAZEM CD 180 MG CAPSULE PO SCH (12:55)
--- NOTE | 2019-06-15 16:32 | PDOC.EVN ---
Event Note - Event Note Event Note: patient has converted into atrial fibrillation. She has a history of an "arrhythmia"- which is suspected atrial fibrillation. Will start her on Eliquis due to a CHADsVas score of 3. Patient's Myesthenia panel was also positive.
[2019-06-15] MEDS: predniSONE 20 MG TAB PO SCH (17:20)
[2019-06-15] MEDS: Apixaban 5 MG TAB PO SCH (21:29)
[2019-06-15] MEDS: Donepezil HCl 5 MG TAB PO SCH (21:40)
[2019-06-16] MEDS: Pyridostigmine Bromide IR 60 MG TAB PO SCH ×3 (02:01→17:11)
[2019-06-16] MEDS: Apixaban 5 MG TAB PO SCH ×2 (08:20→22:34)
[2019-06-16] MEDS: predniSONE 20 MG TAB PO SCH ×2 (08:23→17:14)
[2019-06-16] MEDS: DILTIAZEM CD 180 MG CAPSULE PO SCH (10:45)
[2019-06-16] MEDS: hydrALAZINE 25 MG TAB PO SCH ×3 (11:44→22:44)
--- NOTE | 2019-06-16 11:46 | EKG ---
Test Reason : Blood Pressure : / mmHG Vent. Rate : 074 BPM Atrial Rate : 074 BPM P-R Int : 158 ms QRS Dur : 086 ms QT Int : 394 ms P-R-T Axes : 037 -10 009 degrees QTc Int : 437 ms Normal sinus rhythm Possible Left atrial enlargement Left ventricular hypertrophy Abnormal ECG Confirmed by LEONCIO BARRY ([id number]), desk editor HENRY SAWYER ([id number]) on 06/16/2019 11:46:15 AM Referred By: Confirmed By:LEONCIO BARRY
[2019-06-16] MEDS: METOPROLOL TARTRATE 50 MG PO SCH ×2 (13:12→22:40)
[2019-06-16] MEDS: Famotidine 20 MG TAB PO SCH (13:30)
--- NOTE | 2019-06-16 18:43 | PDOC.HOSPP ---
- Subjective Encounter Date: 06/16/19 Encounter Time: 18:30 Subjective: f/u myasthenia gravis initiated on Solumedrol/Mestinon. Feels better overall but still some hoarseness and ptosis. Appetite ok and tolerating pureed diet. - Objective Vital Signs & Weight: Vital Signs (12 hours) Temp Pulse Resp BP BP Pulse Ox 06/16/19 15:50 98.4 F 76 14 143/64 H 96 06/16/19 15:20 86 06/16/19 11:57 98.1 F 86 16 161/81 H 97 06/16/19 11:44 81 148/78 H 06/16/19 08:16 95 06/16/19 07:33 97.8 F 81 20 148/78 H 95 Weight Admit Weight 130 lb 8 oz Weight 130 lb 8 oz I&O: 06/15/19 06/16/19 06/17/19 06:59 06:59 06:59 Intake Total 720 940 Balance 720 940 Result Diagrams: 06/09/19 07:07 06/09/19 07:07 EKG Reviewed by me: Yes (Tele - A-fib in 70's) Hospitalist ROS - Medication Medications: Active Medications Generic Name Dose Route Start Last Admin Trade Name Freq PRN Reason Stop Dose Admin Apixaban 5 mg 06/15/19 21:00 06/16/19 08:20 Eliquis PO 5 mg BID [facility] Administration Donepezil HCl 5 mg 06/09/19 21:00 06/15/19 21:40 Aricept PO Not Given HS [facility] Famotidine 20 mg 06/10/19 09:00 06/16/19 13:30 Pepcid PO Not Given DAILY [facility] Hydralazine HCl 25 mg 06/11/19 15:00 06/16/19 15:20 Apresoline PO Not Given TID [facility] Diltiazem Cd 180 Mg 1 each 06/10/19 09:00 06/16/19 10:45 Capsule PO 1 each DAILY [facility] Administration Patient's Home 0 each 06/09/19 21:00 06/16/19 13:12 Medication PO 1 each Metoprolol Tartrate BID [facility] Administration 50 Mg Patient's Home 0 each 06/09/19 17:15 06/15/19 09:00 Medication Clonidine PO 1 each 0.1 Mg Q12H PRN Administration SBP GREATER THAN 160 Prednisone 60 mg 06/15/19 17:00 06/16/19 17:14 Prednisone PO Not Given BID-[facility] Pyridostigmine [place] 60 mg 06/11/19 18:00 06/16/19 17:11 Mestinon PO 60 mg 0200,1000,1800 SHE[place] Administration - Exam General Appearance: NAD, awake alert Eye: PERRL, anicteric sclera Eye - other findings: mild ptosis bilat ENT: no oropharyngeal lesions Neck: supple, symmetric, no JVD, no thyromegaly, no lymphadenopathy Heart: no gallops, no rubs, normal peripheral pulses, irregular Respiratory: CTAB, no wheezes, no rales, no ronchi, normal chest expansion Gastrointestinal: soft, non-tender, non-distended, normal bowel sounds, no palpable masses Extremities: no cyanosis, no clubbing, no edema Skin: normal turgor, no lesions Neurological - other findings: mild ptosis Musculoskeletal: generalized weakness Psychiatric: normal affect, A&O x 3 Hosp A/P (1) Myasthenia gravis Code(s): G70.00 - MYASTHENIA GRAVIS WITHOUT (ACUTE) EXACERBATION Status: Acute Plan: Continue Mestinon, Prednisone, PT/OT/BARGE ENGINEER (2) Atrial fibrillation Code(s): I48.91 - UNSPECIFIED ATRIAL FIBRILLATION Status: Acute Plan: Likely chronic, rate-controlled currently, continue Diltiazem/Eliquis (3) Dysphagia Code(s): R13.10 - DYSPHAGIA, UNSPECIFIED Status: Acute Qualifiers: Dysphagia type: oropharyngeal phase Qualified Code(s): R13.12 - Dysphagia, oropharyngeal phase Plan: Secondary to #1, pureed diet (4) Ptosis Code(s): H02.409 - UNSPECIFIED PTOSIS OF UNSPECIFIED EYELID Status: Acute Qualifiers: Laterality: bilateral Qualified Code(s): H02.403 - Unspecified ptosis of bilateral eyelids (5) UTI (urinary tract infection) Status: Acute Plan: Ucx without dominant organism - Plan PT/OT, social secretary, speech therapy, out of bed/ambulate, DVT proph w/SCDs Stable currently Awaiting transfer to SNF Continue Prednisone 60mg BID Continue Mestinon OOB with PT
[2019-06-16] MEDS: Donepezil HCl 5 MG TAB PO SCH (22:44)
[2019-06-17] MEDS: Pyridostigmine Bromide IR 60 MG TAB PO SCH ×3 (03:00→18:15)
[2019-06-17] MEDS: predniSONE 20 MG TAB PO SCH ×2 (07:57→18:15)
[2019-06-17] MEDS: Famotidine 20 MG TAB PO SCH (07:57)
[2019-06-17] MEDS: Apixaban 5 MG TAB PO SCH ×2 (07:58→21:28)
[2019-06-17] MEDS: hydrALAZINE 25 MG TAB PO SCH ×3 (07:58→21:41)
--- NOTE | 2019-06-17 15:53 | PDOC.HOSPP ---
- Subjective Encounter Date: 06/17/19 Encounter Time: 15:50 Subjective: f/u for myasthenia gravis on current Prednisone/Mestinon. Feels better overall with mild hoarseness. Apparently not working with PT. - Objective Vital Signs & Weight: Vital Signs (12 hours) Temp Pulse Resp BP BP Pulse Ox 06/17/19 15:35 97.8 F 85 20 149/84 H 96 06/17/19 11:35 97.8 F 76 16 153/96 H 94 L 06/17/19 08:07 77 18 158/90 H 06/17/19 07:58 98 06/17/19 07:36 97.8 F 98 20 210/97 H 98 Weight Admit Weight 130 lb 8 oz Weight 130 lb 8 oz I&O: 06/16/19 06/17/19 06/18/19 06:59 06:59 06:59 Intake Total 940 500 Balance 940 500 Result Diagrams: 06/09/19 07:07 06/09/19 07:07 EKG Reviewed by me: Yes (Tele - A-fib in 70's) Hospitalist ROS - Medication Medications: Active Medications Generic Name Dose Route Start Last Admin Trade Name Freq PRN Reason Stop Dose Admin Apixaban 5 mg 06/15/19 21:00 06/17/19 07:58 Eliquis PO 5 mg BID [facility] Administration Donepezil HCl 5 mg 06/09/19 21:00 06/16/19 22:44 Aricept PO Not Given HS [facility] Famotidine 20 mg 06/10/19 09:00 06/17/19 07:57 Pepcid PO Not Given DAILY [facility] Hydralazine HCl 25 mg 06/11/19 15:00 06/17/19 07:58 Apresoline PO Not Given TID [facility] Diltiazem Cd 180 Mg 1 each 06/10/19 09:00 06/16/19 10:45 Capsule PO 1 each DAILY [facility] Administration Patient's Home 0 each 06/09/19 21:00 06/16/19 22:40 Medication PO 1 each Metoprolol Tartrate BID [place] Administration 50 Mg Patient's Home 0 each 06/09/19 17:15 06/15/19 09:00 Medication Clonidine PO 1 each 0.1 Mg Q12H PRN Administration SBP GREATER THAN 160 Prednisone 60 mg 06/15/19 17:00 06/17/19 07:57 Prednisone PO 60 mg BID-[facility] Administration Pyridostigmine [place] 60 mg 06/11/19 18:00 06/17/19 07:56 Mestinon PO 60 mg 0200,1000,1800 [facility] Administration - Exam General Appearance: NAD, awake alert Eye: PERRL, anicteric sclera Eye - other findings: mild ptosis ENT: normocephalic atraumatic, no oropharyngeal lesions Neck: supple, symmetric, no JVD, no thyromegaly, no lymphadenopathy Heart: no gallops, no rubs, normal peripheral pulses, irregular Respiratory: CTAB, no wheezes, no rales, no ronchi, normal chest expansion Gastrointestinal: soft, non-tender, non-distended, normal bowel sounds, no palpable masses Extremities: no cyanosis, no clubbing, no edema Skin: normal turgor, no lesions Neurological: cranial nerve grossly intact, no new deficit Neurological - other findings: mild ptosis Psychiatric: A&O x 3 Hosp A/P (1) Myasthenia gravis Code(s): G70.00 - MYASTHENIA GRAVIS WITHOUT (ACUTE) EXACERBATION Status: Acute Plan: Continue Prednisone/Mestinon (2) Atrial fibrillation Code(s): I48.91 - UNSPECIFIED ATRIAL FIBRILLATION Status: Chronic Plan: Continue Eliquis/Diltiazem/Metoprolol (3) Dysphagia Code(s): R13.10 - DYSPHAGIA, UNSPECIFIED Status: Acute Qualifiers: Dysphagia type: oropharyngeal phase Qualified Code(s): R13.12 - Dysphagia, oropharyngeal phase Plan: Continue pureed diet (4) Ptosis Code(s): H02.409 - UNSPECIFIED PTOSIS OF UNSPECIFIED EYELID Status: Acute Qualifiers: Laterality: bilateral Qualified Code(s): H02.403 - Unspecified ptosis of bilateral eyelids (5) UTI (urinary tract infection) Status: Acute Plan: Resolved - Plan old records reviewed/req, PT/OT, oncology social work, speech therapy, out of bed/ ambulate, DVT proph w/SCDs Stable currently Awaiting transfer to SNF Continue Prednisone 60mg BID Continue Mestinon OOB with PT
[2019-06-17] MEDS: METOPROLOL TARTRATE 50 MG PO SCH ×2 (18:14→21:42)
[2019-06-17] MEDS: DILTIAZEM CD 180 MG CAPSULE PO SCH ×2 (18:15→18:56)
[2019-06-17] MEDS: Donepezil HCl 5 MG TAB PO SCH (21:41)
[2019-06-18] MEDS: Pyridostigmine Bromide IR 60 MG TAB PO SCH ×3 (03:13→18:12)
[2019-06-18] MEDS: hydrALAZINE 25 MG TAB PO SCH ×3 (09:33→21:21)
[2019-06-18] MEDS: predniSONE 20 MG TAB PO SCH ×2 (09:43→18:12)
[2019-06-18] MEDS: Famotidine 20 MG TAB PO SCH (09:45)
[2019-06-18] MEDS: METOPROLOL TARTRATE 50 MG PO SCH ×2 (09:46→21:24)
[2019-06-18] MEDS: DILTIAZEM CD 180 MG CAPSULE PO SCH (09:46)
[2019-06-18] MEDS: Apixaban 5 MG TAB PO SCH ×2 (12:54→21:18)
--- NOTE | 2019-06-18 16:51 | PDOC.HOSPP ---
- Subjective Encounter Date: 06/18/19 Encounter Time: 16:45 Subjective: f/u for myasthenia gravis on current Mestinon/Prednisone. Multiple complaints about neck brace, food quality, mobility, A-fib, room temperature and home situation. - Objective Vital Signs & Weight: Vital Signs (12 hours) Temp Pulse Resp BP BP Pulse Ox 06/18/19 16:14 79 06/18/19 12:59 163/94 H 06/18/19 11:46 97.5 F L 79 18 180/99 H 97 06/18/19 09:33 65 06/18/19 08:00 97.6 F 65 18 138/76 96 Weight Admit Weight 130 lb 8 oz Weight 130 lb 8 oz I&O: 06/17/19 06/18/19 06/19/19 06:59 06:59 06:59 Intake Total 940 980 Balance 940 980 Result Diagrams: 06/09/19 07:07 06/09/19 07:07 EKG Reviewed by me: Yes (Tele - A-fib in 70's) Hospitalist ROS - Medication Medications: Active Medications Generic Name Dose Route Start Last Admin Trade Name Freq PRN Reason Stop Dose Admin Apixaban 5 mg 06/15/19 21:00 06/18/19 12:54 Eliquis PO 5 mg BID [facility] Administration Donepezil HCl 5 mg 06/09/19 21:00 06/17/19 21:41 Aricept PO Not Given HS [facility] Famotidine 20 mg 06/10/19 09:00 06/18/19 09:45 Pepcid PO Not Given DAILY [facility] Hydralazine HCl 25 mg 06/11/19 15:00 06/18/19 16:14 Apresoline PO Not Given TID [facility] Diltiazem Cd 180 Mg 1 each 06/10/19 09:00 06/17/19 18:56 Capsule PO 1 each DAILY [facility] Administration Patient's Home 0 each 06/09/19 21:00 06/17/19 21:42 Medication PO 1 each Metoprolol Tartrate BID [place] Administration 50 Mg Patient's Home 0 each 06/09/19 17:15 06/15/19 09:00 Medication Clonidine PO 1 each 0.1 Mg Q12H PRN Administration SBP GREATER THAN 160 Prednisone 60 mg 06/15/19 17:00 06/18/19 09:43 Prednisone PO 60 mg BID-WM [facility] Administration Pyridostigmine [place] 60 mg 06/11/19 18:00 06/18/19 09:33 Mestinon PO 60 mg 0200,1000,1800 [facility] Administration - Exam General Appearance: NAD, awake alert Eye: PERRL, anicteric sclera ENT: normocephalic atraumatic, no oropharyngeal lesions ENT - other findings: mild ptosis Neck: supple, symmetric, no JVD, no thyromegaly Heart: no gallops, no rubs, normal peripheral pulses, irregular Respiratory: CTAB, no wheezes, no rales, no ronchi, normal chest expansion Gastrointestinal: soft, non-tender, non-distended, normal bowel sounds Extremities: no cyanosis, no clubbing, no edema Skin: normal turgor, no lesions Neurological: no new deficit Neurological - other findings: mild ptosis, dysphagia Psychiatric: oriented to person, oriented to place Hosp A/P (1) Myasthenia gravis Code(s): G70.00 - MYASTHENIA GRAVIS WITHOUT (ACUTE) EXACERBATION Status: Acute Plan: Continue Mestinon/Prednisone 60mg daily, PT/OT for mobilization (2) Atrial fibrillation Code(s): I48.91 - UNSPECIFIED ATRIAL FIBRILLATION Status: Chronic Qualifiers: Atrial fibrillation type: longstanding persistent Qualified Code(s): I48.11 - Longstanding persistent atrial fibrillation Plan: Continue rate-control, Eliquis 5mg BID (3) Dysphagia Code(s): R13.10 - DYSPHAGIA, UNSPECIFIED Status: Acute Qualifiers: Dysphagia type: oropharyngeal phase Qualified Code(s): R13.12 - Dysphagia, oropharyngeal phase Plan: Puree diet, aspiration risk precautions (4) Ptosis Code(s): H02.409 - UNSPECIFIED PTOSIS OF UNSPECIFIED EYELID Status: Acute Qualifiers: Laterality: bilateral Qualified Code(s): H02.403 - Unspecified ptosis of bilateral eyelids (5) UTI (urinary tract infection) Status: Acute Plan: Resolved - Plan PT/OT, group social worker, speech therapy, out of bed/ambulate, DVT proph w/SCDs Stable currently SNF denied by insurance Continue Prednisone 60mg daily Continue Mestinon OOB with PT Likely home with HH/PT/OT/DIRECTOR COLLEGE in am
--- NOTE | 2019-06-18 18:40 | DIS ---
DATE OF ADMISSION: 06/09/2019 DATE OF DISCHARGE: 06/18/2019 DISCHARGE DIAGNOSES: 1. Myasthenia gravis, new diagnosis. 2. Atrial fibrillation, chronic, rate controlled, on chronic Eliquis. 3. Dysphagia, secondary to myasthenia gravis. 4. Ptosis, bilateral, secondary to myasthenia gravis. 5. Urinary tract infection, resolved. 6. Deconditioning. CONSULTATIONS: Dr. Mckeon and Dr. ySkes with Neurology Service. PERTINENT LABORATORY AND X-RAY FINDINGS: Complete metabolic profile within normal limits. Total cholesterol 118, triglycerides 64, HDL 42, LDL 63. CBC within normal limits. Myasthenia gravis panel, positive for acetylcholine receptor antibodies and blocking antibodies with anti-striation antibodies. Urine culture dated 06/08/2019, showed 10,000 to 25,000 colonies of mixed skin donnie. Portable chest x-ray dated 06/08/2019, showed no acute cardiopulmonary process. CT of the brain without contrast dated 06/08/2019, showed no acute intracranial process. Carotid Doppler study dated 06/09/2019, showed no hemodynamically significant stenosis. MRI of the brain dated 06/09/2019, showed no acute intracranial process. Modified barium swallow study dated 06/11/2019 showed penetration with thin liquids. HOSPITAL COURSE: The patient was initially admitted after presenting with bilateral eye drooping with dysphagia and concern for initial CVA. The patient also with a history of chronic atrial fibrillation, increasing the risk of potential CVA-like symptoms. The patient underwent CT imaging of the brain as well as carotid and MRI imaging showing no evidence of acute intracranial process. Due to the patient's presentation, concern for myasthenia gravis was entertained; at which point, the patient was placed on Mestinon and IV Solu-Medrol. Myasthenia gravis panel was performed confirming the diagnosis. The patient had improvement in overall ptosis and dysphagia with initiation of Mestinon and IV Solu-Medrol. The patient was evaluated by the Neurology Service with recommendations to continue this course of action and work with Physical Therapy during the hospital course. The patient refused physical therapy on multiple occasions, refusing to ambulate or work with the therapist. The patient was also reluctant to work with speech therapy; however, did undergo a modified barium swallow study showing evidence of penetration with thin liquids. The patient was placed on pureed diet with aspiration risk and tolerated without difficulty. Due to the patient's overall presentation and concern for living situation, the patient was evaluated for potential jail placement. Due to the patient's lack of participation and physical therapy as well as refusing medications, the patient was not deemed an appropriate candidate for ongoing successful jail care. The patient will be evaluated for Home Health Services including physical and speech therapy on discharge. I have discussed the options and examined the patient at the time of discharge. The patient is to ready for discharge on 06/18/2019. DISCHARGE MEDICATIONS: 1. Diltiazem extended release 180 mg p.o. daily. 2. Aricept 5 mg p.o. at bedtime. 3. Clonidine 0.1 mg p.o. q.12 hours. 4. Eliquis 5 mg p.o. b.i.d. 5. Prednisone 60 mg p.o. b.i.d. 6. Mestinon 60 mg p.o. q.8 hours. FOLLOWUP: The patient may follow up with Dr. Ehsan Sykes with Neurology Service and to call his office for appointment time and date. CONDITION ON DISCHARGE: Fair. ACTIVITY: Rolling walker for ambulation. DIET: Regular with pureed texture. SPECIAL INSTRUCTIONS: Home health services with physical and speech therapy on discharge. CODE STATUS: Full. DISPOSITION: Home with Home Health Services on 06/18/2019. TIME SPENT: Total time preparing and coordinating discharge, 35 minutes. Job ID: [id number]
[2019-06-18] MEDS: Donepezil HCl 5 MG TAB PO SCH (21:21)
[2019-06-18] MEDS: CLONIDINE 0.1 MG PO PRN (22:58)
[2019-06-19] MEDS: Pyridostigmine Bromide IR 60 MG TAB PO SCH ×2 (02:49→09:38)
[2019-06-19] MEDS: Famotidine 20 MG TAB PO SCH (09:24)
[2019-06-19] MEDS: predniSONE 20 MG TAB PO SCH (09:38)
[2019-06-19] MEDS: Apixaban 5 MG TAB PO SCH (09:38)
[2019-06-19] MEDS: hydrALAZINE 25 MG TAB PO SCH (09:52)
[2019-06-19] MEDS: METOPROLOL TARTRATE 50 MG PO SCH (09:52)
[2019-06-19] MEDS: DILTIAZEM CD 180 MG CAPSULE PO SCH (09:56)
--- NOTE | 2019-06-19 10:31 | EKG ---
Test Reason : Blood Pressure : / mmHG Vent. Rate : 092 BPM Atrial Rate : 069 BPM P-R Int : 000 ms QRS Dur : 084 ms QT Int : 348 ms P-R-T Axes : 000 013 010 degrees QTc Int : 430 ms Atrial fibrillation Minimal voltage criteria for LVH, may be normal variant Abnormal ECG When compared with ECG of 08-JUN-2019 22:21, (Unconfirmed) Atrial fibrillation has replaced Sinus rhythm Confirmed by MARVIN SYKES ([id number]) on 06/19/2019 10:31:28 AM Referred By: VIET Confirmed By:MARVIN SYKES
[2019-06-19 12:02] VITALS: BP 117/74; TEMP 98
--- NOTE | 2019-06-20 15:16 | DIS ---
DATE OF ADMISSION: 06/09/2019 DATE OF DISCHARGE: 05/30/2019 ADDENDUM: HOSPITAL COURSE: The patient's discharge was held for approximately 24 hours due to patient's unwillingness to discharge. The patient had been medically cleared for discharge on 06/18/2019, but felt that she needed to stay another 24 hours. The patient's clinical course was unremarkable and the patient remained clinically stable during the remainder of the hospital course. I have examined the patient time of discharge and discussed followup instructions. The patient is ready for on 06/19/2019. Please see dictated discharge summary dated 06/18/2019 for full details and medication reconciliation. Job ID: [id number]
== END 2019-06-19 13:36 | disposition home or self-care (01) | DRG 57 ==
LOC: ERS 20:45 → 2SE 06-09 01:36
PROVIDERS: ADMIT Hospitalist; ATTEND Hospitalist
DX: G70.00 Myasthenia gravis without (acute) exacerbation (principal); N39.0 Urinary tract infection, site not specified; I48.20 Chronic atrial fibrillation, unspecified; D15.0 Benign neoplasm of thymus; I10 Essential (primary) hypertension; F22 Delusional disorders; B86 Scabies; Z79.01 Long term (current) use of anticoagulants; Z79.899 Other long term (current) drug therapy; Z90.49 Acquired absence of other specified parts of digestive tract
CPT/HCPCS: 36415; 36416; 70450; 70551; 71045; 74230; 80048; 80053; 80061; 81003; 81015; 85025; 85610; 85730; 87086; 93005; 93010; 93306; 93880; 96374; J0696; J1630; J2060; J2930; J3490; J7512; S0028

== ENCOUNTER 2020-02-24 10:36 | Inpatient (IN) | payer MEDICARE ==
[2020-02-24 11:30] LABS: #Lymphocytes 1.4 thou/uL (1.20-3.40); #Monocytes 0.6 thou/uL (0.11-0.59); #Neutrophils 6.4 thou/uL (1.40-6.50); %Basophils 0.1 % (0.0-1.0); %Eosinophils 0.4 % (0.0-10.0); %Lymphocytes 16.3 % (21.0-51.0); %Monocytes 6.9 % (0.0-10.0); %Neutrophils 76.3 % (42.0-75.0); Hemoglobin 13.3 g/dL (12.0-16.0); Mean Corpuscular HGB CONC 33.7 g/dL (32.0-36.0); Mean Corpuscular Hemoglobin 30.6 pg (27.0-31.0); Mean Corpuscular Volume 90.9 fL (78.0-98.0); Mean Platelet Volume 9.1 fL (7.4-10.4); Platelet Count 149 thou/uL (130-400); RBC Distribution Width 15.5 % (11.5-14.5); Red Blood Cell (RBC) Count 4.35 mill/uL (4.20-5.40); White Blood Cell (WBC) Count 8.4 thou/uL (4.8-10.8)
[2020-02-24 11:48] LABS: ALT (SGPT) 24 U/L (8-55); AST (SGOT) 30 U/L (5-34); Albumin 3.4 g/dL (3.4-4.8); Alkaline Phosphatase 48 U/L (40-110); Anion Gap 18 mmol/L (10-20); BUN (Urea Nitrogen) 19 mg/dL (9.8-20.1); Bilirubin, Total 0.8 mg/dL (0.2-1.2); Calc. Creatinine Clearance 0 mL/min (70-130); Calcium 8.5 mg/dL (7.8-10.44); Carbon Dioxide 24 mmol/L (23-31); Chloride 100 mmol/L (98-107); Estimated GFR-MDRD 48; Globulin 2.7 g/dL (2.4-3.5); Glucose 134 mg/dL (83-110); Potassium 3.7 mmol/L (3.5-5.1); Protein, Total 6.1 g/dL (6.0-8.3); Sodium 138 mmol/L (136-145)
--- NOTE | 2020-02-24 12:07 | RAD ---
SINGLE VIEW CHEST: HISTORY: Painful blisters on back and stomach. COMPARISON: 06/08/19 FINDINGS: A single view of the chest shows an enlarged cardiomediastinal silhouette with atherosclerotic calcif ications in the aorta. There is a 2.2 cm opacity projecting over the right upper lobe, which could re present a pulmonary nodule/mass. No pleural effusion is seen. IMPRESSION: 1. Cardiomegaly. 2. Possible right upper lobe pulmonary nodule. POS: EAA
[2020-02-24 12:08] LABS: CKMB 0.7 ng/mL (0-6.6)
[2020-02-24] MEDS ORDERED: Acyclovir 800 mg Tablet PO SCH (12:45)
--- NOTE | 2020-02-24 13:29 | PDOC.FPRHP ---
- History of Present Illness Chief Complaint: skin rash History of Present Illness: 85 y/o F with PMHX afib, myasthenia gravis, heart failure presented to ED for skin rash. Noted on vitals to have HR in 160s with irregular rhythm, had not yet taken her home metoprolol for the AM. Denies any chest pain, SOB, palpitations. She notes she may have forgotten to take some of her medications for the past few days. She denies having a local geological science teacher, has seen some doctors in [place] for the "electricity" in her heart. She reports her rash started a few days ago and initially it did not bother her very much. It extends from her back and wraps around her R side to the front. She describes burning pain associated with the rash. She also c/o redness and swelling in her bilateral lower extremities; this has been ongoing for some time and she has been seen by her PCP for this. Previously was applying creams to the area which caused skin breakdown in the past and was instructed not to put any creams on her feet anymo re. ED Course: HR 160s, normotensive. Given 1L NS and home dose of metoprolol 100 mg PO from the medication she brought with her. This decreased her HR to the 90s-110s. Given acyclovir for shingles. - Allergies/Adverse Reactions Allergies Allergy/AdvReac Type Severity Reaction Status Date / Time No Known Drug Allergies Allergy Verified 02/24/20 17:34 - Home Medications Medication Instructions Recorded Confirmed Type Donepezil HCl [Aricept] 1 tab PO HS 06/09/19 02/24/20 History Pyridostigmine [place] [Mestinon] 60 mg PO 0200,1000,1800 #90 tab 06/18/19 02/24/20 Rx Metoprolol Tartrate [Lopressor] 100 mg PO BID 06/19/19 02/24/20 History Apixaban [Eliquis] 5 mg PO BID 02/24/20 02/24/20 History Furosemide [Lasix] 40 mg PO BID 02/24/20 02/24/20 History Potassium Chloride 20 meq PO DAILY 02/24/20 02/24/20 History predniSONE [Prednisone] 40 mg PO DAILY 02/24/20 02/24/20 History - History PMHx: myasthenia gravis, afib PSHx: colostomy FHx: unknown Social: denies tobacco use - Review of Systems General: denies: fever/chills, fatigue ENT: denies: nasal congestion Respiratory: denies: cough, shortness of breath Cardiovascular: reports: edema. denies: chest pain, palpitation Gastrointestinal: denies: nausea, vomiting, abdominal pain Genitourinary: denies: dysuria Skin: reports: rashes Neurological: denies: weakness - Vital signs BP: 99/67, MAP: 77, Pulse: 140, Resp: 20, O2 sat: 96 on (Room Air). Wt 72.1 kg - Physical Exam Constitutional: NAD, awake, alert and oriented HEENT: normocephalic and atraumatic, conjunctiva clear, grossly normal vision, grossly normal hearing, MMM Chest: no-tender to palpation Heart: no murmurs/rubs/gallops -Heart: irregularly irregular rhythm, mild tachycardia; 4+ pitting edema bilateral LE extending to just above the knees; pedal pulses 1+ Lungs: CTAB, no respiratory distress Abdomen: soft, bowel sounds present -Abdomen: colostomy LLQ, rash as noted on skin exam Musculoskeletal: normal structure Neurological: no focal deficit Skin: other (T9-T10 dermatomal rash extending from midline on R back to midline on front of torso, erythematous with vesicles in varying stages, tender) Heme/Lymphatic: no unusual bruising or bleeding Psychiatric: other (animated mood, unclear if mild cognitive impairment or low health literacy) FMR H&P: Results - Labs Result Diagrams: 02/25/20 04:30 02/25/20 04:30 Lab results: WBC 8.4 thou/uL (4.8-10.8) 02/24/20 11:07 Hgb 13.3 g/dL (12.0-16.0) 02/24/20 11:07 Hct 39.5 % (36.0-47.0) 02/24/20 11:07 MCV 90.9 fL (78.0-98.0) 02/24/20 11:07 Plt Count 149 thou/uL (130-400) 02/24/20 11:07 Neutrophils % 76.3 % (42.0-75.0) H 02/24/20 11:07 Sodium 138 mmol/L (136-145) 02/24/20 11:07 Potassium 3.7 mmol/L (3.5-5.1) 02/24/20 11:07 Chloride 100 mmol/L (98-107) 02/24/20 11:07 Carbon Dioxide 24 mmol/L (23-31) 02/24/20 11:07 BUN 19 mg/dL (9.8-20.1) 02/24/20 11:07 Creatinine 1.08 mg/dL (0.6-1.1) 02/24/20 11:07 Glucose 134 mg/dL (83-110) H 02/24/20 11:07 Calcium 8.5 mg/dL (7.8-10.44) 02/24/20 11:07 Total Bilirubin 0.8 mg/dL (0.2-1.2) 02/24/20 11:07 AST 30 U/L (5-34) 02/24/20 11:07 ALT 24 U/L (8-55) 02/24/20 11:07 Alkaline Phosphatase 48 U/L (40-110) 02/24/20 11:07 CK-MB (CK-2) 0.7 ng/mL (0-6.6) 02/24/20 11:07 Serum Total Protein 6.1 g/dL (6.0-8.3) 02/24/20 11:07 Albumin 3.4 g/dL (3.4-4.8) 02/24/20 11:07 - EKG Interpretation EKG: EKG in ED: Afib rate 160, repeat EKG afib rate 111 FMR H&P: A/P - Plan AFib w/RVR Asymptomatic, noted to be in 160s on ED evaluation. VSS. Likely due to missing home medications in combination with current illness as below. RVR now resolved after administration of 1L NS and her home dose of metoprolol tartrate 100 mg PO in the ED. No local geological science teacher; may see EP in [place], considering ablation, although this is unclear and patient is unable to provide name. - continue home metoprolol 100 mg PO BID - monitor on tele overnight - continue home eliquis - f/u echo - f/u TSH Herpes zoster Active shingles along T9-T10 dermatomes on R, extending from midline on back to midline on front of torso. s/p one dose acyclovir in ED. - continue acyclovir 800 mg five times daily - gabapentin 100 mg TID for neuropathic pain - tylenol 650 mg q6h for pain - continue home dose steroids Myasthenia gravis Newly diagnosed in 05/2019. No evidence of myasthenia crisis on today's exam. - continue home pyridostigmine bromide - contine prednisone 20 mg BID - consider contacting PCP at [facility] to clarify if this is a stress dose of steroids or chronic therapy Heart Failure, presumed Bilateral edema lower extremities today. Uncontrolled afib may be an exacerbating factor. - IV lasix 40 mg x 1 - Resumed home lasix 40 mg BID PO in AM - Monitor I/O - f/u echo Disposition/LOS: Dispo: tele obs, likely home tomorrow pending no further episodes of afib w/RVR FMR H&P: Upper Level - Pertinent history Patient is a 85 yo female who presents with skin rash across right side of upper abdomen and mid back. Rash has vesicles and blisters with erythema. States rash has been present for about 3 days and her pain has been increasing. Says she was seen by her PCP Marlen Giron (at [facility]) a few days ago for a "separate problem that's not why I'm being admitted" and refuses to discuss further. Per pharmacy review of meds it appears she received prednisone at that time. Patient says she has doctors all over in [place] and in [facility] area that she has for "different problems" but refuses to discuss most of these any further. Patient was incidentally found upon taking vitals to be in AFib with RVR at rate of 163. Patient states she definitely did not take her home Metoprolol this morning and may not have taken any of her home meds the last 2-3 days since not feeling well. She denies any symptoms other than the rash. Denies chest pain, SOB, weakness, dizziness/lightheadness. - Pertinent findings Constitutional: No acute distress. Obese. Chronically ill appearing. HEENT: NC/AT. Nares patent. MMM. EOMI. Cardiac: Tachycardic, irregular rhythm. No murmurs appreciated. Respiratory: CTAB, no w/w/r. Abdomen: Vesicular rash with small blisters across right upper abdomen, right flank, and right mid-back. Extremities: 2+ pitting edema in BLE. Neuro: No focal deficits. - Plan Date/Time: 02/24/20 1327 I, Gin Ghosh DO, PGY-2, have evaluated this patient and agree with findings/plan as outlined by web design intern resident. Pertinent changes/additions are listed here. #AFib w/RVR - likely 2/2 missed home meds and current infection - Asymptomatic, incidentally noted to be in 160s in ED, rest of vitals stable, resolved to rate of 90s-110s after administration of 1L NS and her home metoprolol tartrate 100 mg PO - follows with EP in [place] (will not name), per patient he has been considering ablation procedure but has not followed up - place on telemetry - continue home metoprolol tartrate 100 mg PO BID, Eliquis 5 mg BID - consider Cardiology consult if RVR reoccurs - check TSH - check ECHO to assess for heart failure #Indet Troponin -initial trop 0.03, will trend #Herpes zoster, active lesions -rash present along T9-T10 dermatomes on right - s/p Acyclovir 800 mg in ED, will continue at dosing 5x/day - gabapentin 100 mg TID maria g for neuropathic pain - tylenol 650 mg maria g q6h for pain #Myasthenia gravis -continue home pyridostigmine and prednisone -no current suspicion of flare #Heart Failure, suspected -long-standing AFib of unknown duration of the RVR, has 2+ pitting edema on exam -will obtain ECHO to further assess -will give 1 time dose of IV Lasix 20 mg -continue home Lasix 40 BID, KCl -followed by unknown geological science teacher (patient will not name) although suspect he is with [facility] as this is where her PCP is located PCP: Wiliam Awad/ Marlen Giron at [facility] Dispo: Admit to observation on telemetry unit. Monitor for any further episodes of RVR. Continue Shingles treatment. Anticipate LOS <48 hrs. Addendum - Attending - Attending Attestation Date/Time: 02/25/20 3292 I discussed the diagnosis and management with Dr. Martinez I agree with the History, Examination, Assessment and Plan documented above with any addition or exceptions noted below.
[2020-02-24 14:25] LABS: Troponin I 0.029 ng/mL (< 0.028)
[2020-02-24] MEDS ORDERED: Furosemide 40 MG/4 ML VIAL SLOW IVP SCH (14:45)
[2020-02-24] MEDS: Gabapentin 100 MG CAP PO SCH ×2 (16:30→22:16)
[2020-02-24] MEDS: Acetaminophen 325 MG TAB PO SCH (17:13)
[2020-02-24 17:22] VITALS: BMI 36.2
[2020-02-24 17:49] LABS: Troponin I 0.028 ng/mL (< 0.028)
[2020-02-24] MEDS: Acyclovir 800 mg Tablet PO SCH ×2 (17:53→22:17)
[2020-02-24] MEDS: Pyridostigmine Bromide IR 60 MG TAB PO SCH (17:57)
[2020-02-24] MEDS: Metoprolol Tartrate 100 MG TAB PO SCH (22:17)
[2020-02-24] MEDS: Apixaban 5 MG TAB PO SCH (22:21)
[2020-02-24] MEDS: predniSONE 20 MG TAB PO SCH (22:21)
[2020-02-25] MEDS: Acyclovir 800 mg Tablet PO SCH ×5 (01:20→21:29)
[2020-02-25] MEDS: Pyridostigmine Bromide IR 60 MG TAB PO SCH ×3 (01:20→18:07)
[2020-02-25] MEDS: Acetaminophen 325 MG TAB PO SCH ×5 (01:21→18:06)
[2020-02-25 04:48] LABS: #Basophils 0.1 thou/uL (0.0-0.2); #Lymphocytes 1.2 thou/uL (1.20-3.40); #Monocytes 0.4 thou/uL (0.11-0.59); #Neutrophils 5.6 thou/uL (1.40-6.50); %Basophils 0.7 % (0.0-1.0); %Eosinophils 0.5 % (0.0-10.0); %Lymphocytes 16.6 % (21.0-51.0); %Neutrophils 77.2 % (42.0-75.0); Hemoglobin 12.5 g/dL (12.0-16.0); Mean Corpuscular HGB CONC 32.7 g/dL (32.0-36.0); Mean Corpuscular Hemoglobin 29.8 pg (27.0-31.0); Mean Platelet Volume 7.9 fL (7.4-10.4); Platelet Count 132 thou/uL (130-400); RBC Distribution Width 15.4 % (11.5-14.5); Red Blood Cell (RBC) Count 4.21 mill/uL (4.20-5.40); White Blood Cell (WBC) Count 7.2 thou/uL (4.8-10.8)
[2020-02-25 05:14] LABS: Anion Gap 13 mmol/L (10-20); BUN (Urea Nitrogen) 17 mg/dL (9.8-20.1); Calc. Creatinine Clearance 55 mL/min (70-130); Calcium 8.2 mg/dL (7.8-10.44); Carbon Dioxide 30 mmol/L (23-31); Chloride 99 mmol/L (98-107); Estimated GFR-MDRD 61; Glucose 147 mg/dL (83-110); Sodium 139 mmol/L (136-145)
--- NOTE | 2020-02-25 05:53 | PDOC.FM ---
- Subjective Subjective: The patient complains of pain related to shingles rash. She also complains of lower extremity edema. She denies headache, lightheadedness, vision changes, chest pain, palpitations, SOB, nausea, and abdominal pain. - Objective MAR Reviewed: Yes Vital Signs & Weight: Vital Signs (12 hours) Temp Pulse Resp BP Pulse Ox 02/25/20 01:23 92 L 02/25/20 01:20 118 H 18 127/74 02/24/20 19:30 98.3 F 110 H 18 131/73 92 L Weight Weight 73.301 kg I&O: 02/23/20 02/24/20 02/25/20 06:59 06:59 06:59 Intake Total 240 Output Total 1300 Balance -1060 Result Diagrams: 02/25/20 04:30 02/25/20 04:30 Phys Exam - Physical Examination Constitutional: NAD HEENT: moist MMs, sclera anicteric Neck: supple, full ROM Respiratory: no wheezing, clear to auscultation bilateral Cardiovascular: no significant murmur, irregular Gastrointestinal: soft, positive bowel sounds Musculoskeletal: pulses present, edema present (3+ pitting edema extending to knee bilaterally) Neurological: non-focal, moves all 4 limbs Psychiatric: normal affect, A&O x 3 Deviation from normal: T9-T10 dermatomal vesicles and erythema -: Extends midline R back to midline R front, tender Dx/Plan - Plan Plan: AFib w/RVR, resolved Asymptomatic, noted to be in 160s on ED evaluation. Likely due to missing home medications in combination with current illness as below. RVR now resolved after administration of 1L NS and her home dose of metoprolol tartrate 100 mg PO in the ED. No local electromechanical technologist; may see EP in [place], considering ablation, although this is unclear and patient is unable to provide name. TSH WNL. - continue home metoprolol 100 mg PO BID - monitor on tele - continue home eliquis - f/u echo Herpes zoster Active shingles along T9-T10 dermatomes on R, extending from midline on back to midline on front of torso. - continue acyclovir 800 mg five times daily - gabapentin 100 mg TID for neuropathic pain - tylenol 650 mg PRN for pain - continue home dose steroids Myasthenia gravis Newly diagnosed in 05/2019. No evidence of myasthenia crisis in ED. - continue home pyridostigmine bromide - contine prednisone 20 mg BID Heart Failure, presumed Bilateral edema lower extremities, improved. Uncontrolled afib may be an exacerbating factor. - Continue home lasix 40 mg BID - Monitor I/O - f/u echo PCP: Delmi/Bree at [facility] Code: FULL DVT ppx: Home eliquis Dispo: Home pending further medical management
[2020-02-25] MEDS: Metoprolol Tartrate 100 MG TAB PO SCH ×2 (08:49→21:29)
[2020-02-25] MEDS: Gabapentin 100 MG CAP PO SCH ×3 (08:50→21:29)
[2020-02-25] MEDS: Furosemide 20 MG TAB PO SCH ×2 (08:50→14:49)
[2020-02-25] MEDS: Apixaban 5 MG TAB PO SCH ×2 (08:51→21:29)
[2020-02-25] MEDS: predniSONE 20 MG TAB PO SCH ×2 (08:51→21:29)
[2020-02-25] MEDS: Potassium Chloride 20 MEQ TAB PO SCH (08:52)
--- NOTE | 2020-02-25 12:54 | PRG ---
DATE OF SERVICE: 02/25/2020 Ms. Ortiz was admitted with atrial fib with rapid ventricular response, which responded well to p.o. metoprolol. She also has active herpes zoster and is on acyclovir. She has suspected heart failure and we have ordered an echocardiogram to further evaluate this. Job ID: [id number]
[2020-02-26] MEDS: Pyridostigmine Bromide IR 60 MG TAB PO SCH ×3 (02:02→18:03)
[2020-02-26] MEDS: Acetaminophen 325 MG TAB PO SCH ×5 (02:02→18:00)
[2020-02-26] MEDS: Acyclovir 800 mg Tablet PO SCH ×5 (02:02→20:10)
--- NOTE | 2020-02-26 05:58 | PDOC.FM ---
- Subjective Subjective: Patient complains of L forearm and hand numbness/tingling upon waking that has now resolved. She reports continued pain related to rash. She denies headache, chest pain, SOB, nausea, and abdominal pain. The patient notes lower extremity edema is still present but improved. - Objective MAR Reviewed: Yes Vital Signs & Weight: Vital Signs (12 hours) Temp Pulse Resp BP BP Pulse Ox 02/26/20 03:13 97.7 F 95 18 111/64 94 L 02/26/20 01:10 118 H 22 H 134/90 02/25/20 21:12 98.4 F 104 H 18 119/66 94 L Weight Weight 73.301 kg I&O: 02/24/20 02/25/20 02/26/20 06:59 06:59 06:59 Intake Total 240 720 Output Total 1800 650 Balance -1560 70 Result Diagrams: 02/25/20 04:30 02/25/20 04:30 Phys Exam - Physical Examination Constitutional: NAD HEENT: moist MMs, sclera anicteric Neck: supple, full ROM Respiratory: no wheezing, clear to auscultation bilateral Cardiovascular: irregular (Irreguarly irregular) Gastrointestinal: soft, positive bowel sounds Musculoskeletal: edema present (2+ pitting edema extending to knee bilaterally) Neurological: non-focal, moves all 4 limbs Psychiatric: normal affect, A&O x 3 Skin: no rash Deviation from normal: T9-T10 dermatomal vesicles and erythema -: Extends midline R back to midline R front, tender Dx/Plan - Plan Plan: AFib w/RVR, improved Asymptomatic, noted to be in 160s on ED evaluation. Likely due to missing home medications in combination with current illness as below. RVR improved administration of 1L NS and her home dose of metoprolol tartrate 100 mg PO in the ED. No local snowboarding instructor; sees EP in [place], possibly considering ablation. TSH WNL. - continue home metoprolol 100 mg PO BID - tele: Afib with HR 80-100 - continue home eliquis Herpes zoster Active shingles along T9-T10 dermatomes on R, extending from midline on back to midline on front of torso. - continue acyclovir 800 mg (02/23) five times daily for total 7 days - gabapentin 100 mg TID for neuropathic pain - tylenol 650 mg PRN for pain - continue home dose steroids Myasthenia gravis Newly diagnosed in 05/2019. No evidence of myasthenia crisis in ED. - continue home pyridostigmine bromide - continue prednisone 20 mg BID. Unknown if this is loading dose or maintanence. Dr. Awad' office contacted and was unable to find patient's information. Symptomatic Valvular Disease Bilateral edema lower extremities, improved. Echo: moderate mitral regurgitatio n, moderate-severe aortic regurgitation, mild-moderate tricuspid regurgitation. EF 50-55%. - Continue home lasix 40 mg BID - Monitor I/O - PT/OT consulted PCP: Delmi/Bree at [facility] Code: FULL DVT ppx: Home eliquis Dispo: Home pending further medical management
[2020-02-26] MEDS: predniSONE 20 MG TAB PO SCH ×2 (09:08→20:10)
[2020-02-26] MEDS: Gabapentin 100 MG CAP PO SCH ×3 (09:08→20:10)
[2020-02-26] MEDS: Apixaban 5 MG TAB PO SCH ×2 (09:08→20:10)
[2020-02-26] MEDS: Metoprolol Tartrate 100 MG TAB PO SCH ×2 (09:08→20:10)
[2020-02-26] MEDS: Furosemide 20 MG TAB PO SCH (09:08)
[2020-02-26] MEDS: Potassium Chloride 20 MEQ TAB PO SCH (09:08)
[2020-02-26 10:14] LABS: Anion Gap 13 mmol/L (10-20); BUN (Urea Nitrogen) 26 mg/dL (9.8-20.1); Calc. Creatinine Clearance 50 mL/min (70-130); Calcium 8.4 mg/dL (7.8-10.44); Carbon Dioxide 31 mmol/L (23-31); Chloride 102 mmol/L (98-107); Estimated GFR-MDRD 55; Glucose 107 mg/dL (83-110); Magnesium 2.1 mg/dL (1.6-2.6); Potassium 3.1 mmol/L (3.5-5.1); Sodium 143 mmol/L (136-145)
[2020-02-26] MEDS ORDERED: Potassium Chloride 20 MEQ TAB PO SCH (10:30)
[2020-02-26] MEDS ORDERED: Spironolactone 25 MG TAB PO SCH (11:45)
[2020-02-26] MEDS: Furosemide 40 MG/4 ML VIAL SLOW IVP SCH (14:18)
--- NOTE | 2020-02-26 16:35 | PRG ---
DATE OF SERVICE: 02/26/2020 ADDENDUM: This is an addendum to the note of Dr. Arabella Saunders. I have examined Ms. Ortiz. I have discussed the case with Dr. Saunders and agree with her assessment and plan. Job ID: [id number]
--- NOTE | 2020-02-26 16:37 | CON ---
DATE OF CONSULTATION: 02/26/2020 PRIMARY PHARMACY CARE COORDINATOR: Dr. Mejia Mcguire. REASON FOR CONSULTATION: Diastolic heart failure and atrial fibrillation. HISTORY OF PRESENT ILLNESS: Ms. Ortiz is an 85-year-old woman, who came to the hospital with shortness of breath and atrial fibrillation with a rapid rate. She has a history of chronic atrial fibrillation. There was some history of not taking medicines as prescribed, and it appears that she did skip some doses of metoprolol prior to coming to the hospital. Since she has been here, the heart rates improved with beta blockers, but she is still extremely volume overloaded and feels short of breath with exertion. She also complains of her lower extremities being very swollen and difficulty walking due to the peripheral edema. HOME MEDICATIONS: 1. She was prescribed to take metoprolol tartrate twice a day, but she had certainly missed some of the doses. 2. Aricept. 3. Prednisone. 4. Apixaban. 5. Furosemide 40 mg twice a day. 6. Potassium. REVIEW OF SYSTEMS: CONSTITUTIONAL: Positive for weakness and fatigue. VISION: No changes. HEARING: No changes. PULMONARY: Positive for shortness of breath. GASTROINTESTINAL: No nausea, vomiting, or diarrhea. EXTREMITIES: A lot of swelling in the legs, made it difficult to walk. SOCIAL HISTORY: No alcohol or tobacco. PAST MEDICAL HISTORY: As outlined above. She has persistent atrial fibrillation, diastolic heart failure. PHYSICAL EXAMINATION: GENERAL: This is a pleasant patient, in no distress. VITAL SIGNS: Her blood pressure 128/66, pulse is now in the 80s and it is irregular, previously she is tachycardic and irregular. I do not hear murmur, rub, or gallop. ABDOMEN: Obese, nontender. EXTREMITIES: No clubbing or cyanosis. There is [id number] edema. PERTINENT LABORATORY DATA: BNP 668.2. Troponin 0.29, just barely into the indeterminate range. Potassium low at 3.0 and then now 3.1, 3.7 on admission. The patient has an echocardiogram showing normal left ventricular function with moderate mitral regurgitation, [id number] aortic insufficiency. ASSESSMENT: 1. Diastolic congestive heart failure. 2. Bhyoylvl-lq-xrtahx aortic insufficiency. 3. Chronic atrial fibrillation. 4. Hypokalemia. PLAN: 1. We would increase the spironolactone dose to 25 mg twice a day. 2. Change Lasix to intravenous for a day or two. She is still very volume overloaded. 3. Dr. Mcguire will resume care tomorrow. 4. Medical therapy for the aortic insufficiency, probably contributing to the diastolic heart failure, but the main goal at this time would be rate control and diuretics, spironolactone likely to be helpful, especially in view of hypokalemia. Job ID: [id number]
[2020-02-26] MEDS: Spironolactone 25 MG TAB PO SCH (18:03)
[2020-02-26 19:06] LABS: Hemoglobin 13.8 g/dL (12.0-16.0); Platelet Count 173 thou/uL (130-400)
[2020-02-27] MEDS: Acyclovir 800 mg Tablet PO SCH ×5 (00:58→20:29)
[2020-02-27] MEDS: Pyridostigmine Bromide IR 60 MG TAB PO SCH ×3 (00:58→18:30)
[2020-02-27] MEDS: Acetaminophen 325 MG TAB PO SCH ×2 (01:57→05:32)
[2020-02-27] MEDS: Furosemide 40 MG/4 ML VIAL SLOW IVP SCH ×2 (05:32→15:22)
--- NOTE | 2020-02-27 05:39 | PDOC.FM ---
- Subjective Subjective: Patient reports overall pain for the past day. The patient says she was unable to complete PT/OT due to inability to walk. Per nursing, patient has been observed walking to the bedside commode. The patient notes she screams to get the nurse's attention outside. She also says "if you discharge me, I will come right back here" to continue her desired level of care and said she is not interested in HH or placement upon discharge. She denies headache, vision changes, chest pain, SOB, nausea and abdominal pain. - Objective MAR Reviewed: Yes Vital Signs & Weight: Vital Signs (12 hours) Temp Pulse Resp BP Pulse Ox 02/27/20 01:30 98.4 F 114 H 15 135/68 95 02/26/20 20:08 99.3 F 113 H 22 H 120/65 94 L Weight Weight 73.301 kg I&O: 02/25/20 02/26/20 02/27/20 06:59 06:59 06:59 Intake Total 240 1080 960 Output Total 1800 1250 1475 Balance -1560 -170 -696 Result Diagrams: 02/26/20 18:59 02/27/20 06:31 Phys Exam - Physical Examination Constitutional: NAD HEENT: moist MMs, sclera anicteric Neck: supple, full ROM Respiratory: no wheezing, clear to auscultation bilateral Cardiovascular: no significant murmur, irregular Gastrointestinal: soft, positive bowel sounds Musculoskeletal: pulses present, edema present (2+ pitting edema to mid reece, improved) Neurological: normal sensation, moves all 4 limbs Psychiatric: normal affect Deviation from normal: T9-T10 dermatomal vesicles and erythema, significally improved -: Extends R midline of back to R midline of front Dx/Plan - Plan Plan: AFib w/RVR, improved Asymptomatic, noted to be in 160s on ED evaluation. Likely due to missing home medications in combination with current illness as below. RVR improved administration of 1L NS and her home dose of metoprolol tartrate 100 mg PO in the ED. No local retail sales merchandiser development; sees EP in [place], possibly considering ablation. TSH WNL. - continue home metoprolol 100 mg PO BID - tele: Afib with HR 100 at rest, 150 when working with PT - continue home eliquis Diastolic Congestive Heart Failure Valvular Disease Bilateral edema lower extremities, significantly improved. Echo: moderate mitral regurgitation, moderate-severe aortic regurgitation, mild-moderate tricuspid regurgitation. EF 50-55%. Cardiology, Dr. Schneider, consulted. Outpatient retail sales merchandiser development: Dr. Mcguire - Change lasix 40mg BID to IV for 1 more day - Continue spironolactone 25mg BID - Monitor I/O - PT/OT consulted. PT recommended home with HH. OT recommended erhab vs. SNU. Patient does not wish to have either. - F/u Dr. Mcguire' recs Hypokalemia, resolved K 3.7 on admission then downstrended to 3.0->3.1. Now 4.0 -Takes 20 mEq K daily -Continue spironolactone at 25mg BID -Supplement as needed Herpes zoster Active shingles along T9-T10 dermatomes on R, extending from midline on back to midline on front of torso. - continue acyclovir 800 mg (02/23) five times daily for total 7 days - gabapentin 100 mg TID for neuropathic pain - tylenol 650 mg PRN for pain - continue home dose steroids Myasthenia gravis Newly diagnosed in 05/2019. No evidence of myasthenia crisis in ED. - continue home pyridostigmine bromide - continue prednisone 20 mg BID. Unknown if this is loading dose or maintanence. Dr. Awad' office contacted and was unable to find patient's information. PCP: Delmi/Bree at [facility] Code: FULL DVT ppx: Home eliquis Dispo: Home pending further medical management
[2020-02-27 07:19] LABS: Anion Gap 17 mmol/L (10-20); BUN (Urea Nitrogen) 34 mg/dL (9.8-20.1); Calc. Creatinine Clearance 44 mL/min (70-130); Calcium 9.2 mg/dL (7.8-10.44); Carbon Dioxide 32 mmol/L (23-31); Chloride 101 mmol/L (98-107); Estimated GFR-MDRD 48; Glucose 122 mg/dL (83-110); Sodium 146 mmol/L (136-145)
[2020-02-27] MEDS ORDERED: Spironolactone 25 MG TAB PO SCH (08:00)
[2020-02-27] MEDS ORDERED: Acetaminophen 325 MG TAB PO PRN (08:42)
[2020-02-27] MEDS: Spironolactone 25 MG TAB PO SCH ×2 (08:45→18:30)
[2020-02-27] MEDS: Potassium Chloride 20 MEQ TAB PO SCH (08:45)
[2020-02-27] MEDS: Apixaban 5 MG TAB PO SCH ×2 (08:45→20:29)
[2020-02-27] MEDS: Gabapentin 100 MG CAP PO SCH ×3 (08:46→20:29)
[2020-02-27] MEDS: predniSONE 20 MG TAB PO SCH ×2 (08:46→20:29)
[2020-02-27] MEDS: Metoprolol Tartrate 100 MG TAB PO SCH ×2 (08:46→20:29)
--- NOTE | 2020-02-27 12:12 | PRG ---
DATE OF SERVICE: 02/27/2020 Ms. Ortiz is stable from a cardiac standpoint, and we appreciate the input from Dr. Schneider. Despite numerous explanations, Ms. Ortiz is not satisfied with the explanation that her flank pain is caused by her shingles. We have started gabapentin and she is already on acyclovir. We will continue to work on her pain control, although this will be extremely difficult as the pain or shingles is extremely difficult to control. Job ID: [id number]
[2020-02-28] MEDS: Acyclovir 800 mg Tablet PO SCH ×4 (00:15→15:48)
[2020-02-28] MEDS: Pyridostigmine Bromide IR 60 MG TAB PO SCH ×3 (01:18→18:50)
--- NOTE | 2020-02-28 05:53 | PDOC.FM ---
- Subjective Subjective: Patient denies pain overnight. She states "I am an invalid. I cannot walk" when asked why she didn't work with OT yesterday. She continues "I need new feet. Can you get me new feet?" when asks why she cannot walk. Per nursing, the patient has been witnessed ambulating without assistance in the room since admission. The patient also complains of continued lower extremity edema. She denies chest pain, palpitations, SOB and headache. - Objective MAR Reviewed: Yes Vital Signs & Weight: Vital Signs (12 hours) Temp Pulse Resp BP Pulse Ox 02/28/20 03:42 97.9 F 94 16 164/85 H 94 L 02/28/20 00:15 97.6 F 110 H 16 144/96 H 92 L 02/27/20 19:59 94 L 02/27/20 19:40 98.3 F 104 H 20 126/69 94 L Weight Weight 73.301 kg I&O: 02/26/20 02/27/20 02/28/20 06:59 06:59 06:59 Intake Total 1080 1680 Output Total 1250 1775 Balance -170 -95 Result Diagrams: 02/26/20 18:59 02/28/20 06:10 Phys Exam - Physical Examination Constitutional: NAD HEENT: moist MMs, sclera anicteric Neck: supple, full ROM Respiratory: no wheezing, clear to auscultation bilateral Cardiovascular: no significant murmur, irregular Gastrointestinal: soft, positive bowel sounds Musculoskeletal: pulses present, edema present (2+ foot to ankle, 1+ to mid reece bilaterally) Neurological: non-focal, moves all 4 limbs Deviation from normal: Tangential speech, labile affect Skin: no rash Deviation from normal: Wrinkled skin on lower extremities bilaterally Dx/Plan - Plan Plan: AFib w/RVR, improved Asymptomatic, noted to be in 160s on ED evaluation. Likely due to missing home medications in combination with current illness as below. RVR improved administration of 1L NS and her home dose of metoprolol tartrate 100 mg PO in the ED. No local day care home provider; sees EP in [place], possibly considering ablation. TSH WNL. - continue home metoprolol 100 mg PO BID - tele: Afib with RVR 140-150s at 1999, improved to Afib with HR 80-100 overnight - continue home eliquis Diastolic Congestive Heart Failure Valvular Disease Bilateral edema lower extremities, significantly improved. Echo: moderate mitral regurgitation, moderate-severe aortic regurgitation, mild-moderate tricuspid regurgitation. EF 50-55%. Cardiology, Dr. Schneider, consulted. Outpatient day care home provider: Dr. Mcguire - Continue lasix 40 BID - Continue spironolactone 25mg BID - Monitor I/O - PT/OT consulted. PT recommended home with HH. OT recommended erhab vs. SNU. Patient refused both to physician and CM. - F/u Dr. Mcguire' recs Hypokalemia, resolved K 3.7 on admission then downstrended to 3.0->3.1. Improved to 4.0->4.1 after starting spironolactone -Takes 20 mEq K daily -Continue spironolactone at 25mg BID -Supplement as needed Herpes zoster Active shingles along T9-T10 dermatomes on R, extending from midline on back to midline on front of torso. Improved - continue acyclovir 800 mg (02/23) five times daily for total 7 days - gabapentin 100 mg TID for neuropathic pain - tylenol 650 mg PRN for pain - continue home dose steroids Myasthenia gravis Newly diagnosed in 05/2019. No evidence of myasthenia crisis in ED. - continue home meds - continue prednisone [address] Awad' office contacted and was unable to find patient's information. Based on recent prescription, likely maintanence dose. PCP: Delmi/Bree at [facility] Code: FULL DVT ppx: Home eliquis Dispo: Home pending further medical management
[2020-02-28 06:40] LABS: Anion Gap 16 mmol/L (10-20); BUN (Urea Nitrogen) 34 mg/dL (9.8-20.1); Calc. Creatinine Clearance 46 mL/min (70-130); Calcium 8.7 mg/dL (7.8-10.44); Carbon Dioxide 30 mmol/L (23-31); Chloride 101 mmol/L (98-107); Estimated GFR-MDRD 55; Glucose 120 mg/dL (83-110); Potassium 4.1 mmol/L (3.5-5.1); Sodium 143 mmol/L (136-145)
[2020-02-28] MEDS: Furosemide 40 MG/4 ML VIAL SLOW IVP SCH ×2 (07:28→15:46)
[2020-02-28] MEDS: Metoprolol Tartrate 100 MG TAB PO SCH (11:16)
[2020-02-28] MEDS: Potassium Chloride 20 MEQ TAB PO SCH (11:16)
[2020-02-28] MEDS: Gabapentin 100 MG CAP PO SCH ×2 (11:16→15:48)
[2020-02-28] MEDS: predniSONE 20 MG TAB PO SCH (11:16)
[2020-02-28] MEDS: Apixaban 5 MG TAB PO SCH (11:16)
[2020-02-28] MEDS: Spironolactone 25 MG TAB PO SCH ×2 (11:16→18:49)
--- NOTE | 2020-02-28 11:43 | PRG ---
DATE OF SERVICE: 02/28/2020 ADDENDUM: This is an addendum to the note of Dr. Arabella Saunders. Ms. Ortiz is still having some significant discomfort from her shingles. She is otherwise ready for her discharge and we are working with Case Management to make this possible. Job ID: [id number]
--- NOTE | 2020-02-28 11:53 | PQF ---
CLINICAL DOCUMENTATION CLARIFICATION FORM: Dear / Attending Dr. Trujillo Date / Time: 02/28/2020 Please exercise your independent, professional judgment in responding to the clarification form. Clinical indicators are provided on the bottom of this form for your review. Please check appropriate box(es): HEART FAILURE ACUITY: [ ] Acute Diastolic Congestive Heart Failure [ ] Acute on Chronic Diastolic Congestive Heart Failure [ X ] Chronic Diastolic Congestive Heart Failure [ ] Other diagnosis [ ] Unable to determine In addition, please specify: Present on Admission (POA): [ X ] Yes [ ] No [ ] Unable to determine For continuity of documentation, please document condition throughout progress notes and discharge summary. Thank You. To be completed by CDI/Coding staff for physician review: CLINICAL INDICATORS - SIGNS / SYMPTOMS / LABS / RESULTS AND LOCATION IN EMR 02/25 Consult (Jennie) HPI: Since she has been here, the heart rates improved with beta blockers, but she is still extremely volume overloaded and feels short of breath with exertion. Lab: BNP 668.2 02/27 pn (Chip) Plan: Diastolic Congestive Heart Failure Valvular Disease Bilateral edema lower extremities, significantly improved. Echo: EF 50-55% RISKS FACTORS / RESULTS AND LOCATION IN EMR: H&P 02/23 (Rehg) PMH a fib, myasthenia gravis, heart failure. Plan: AFib w/ RVR TREATMENTS / RESULTS AND LOCATION IN EMR 02/25 Conslult (Jennie) Change Lasix to intravenous for a day or two. 02/27 pn (Chip) Cardiology Dr. Schneider consulted -Continue lasix 40 BID -Continue spironolactone 25mg BID Thank you, Jeana Vela RN, BSN [email or web address] This is a permanent part of the Medical Record [facility]
[2020-02-28 13:35] VITALS: BP 135/79; TEMP 97.9
== END 2020-02-28 19:11 | disposition home or self-care (01) | DRG 596 ==
LOC: ERS 10:36 → INTOOBSV 13:41 → OBSVTOIN 13:41 → UNDOADMIN 13:41 → ERHOLD 13:41 → 2SW 16:53 → ERHOLD 16:53 → 2SW 02-26 09:39
PROVIDERS: ADMIT Family Medicine; ATTEND Family Medicine
DX: B02.9 Zoster without complications (principal); I48.20 Chronic atrial fibrillation, unspecified; I50.32 Chronic diastolic (congestive) heart failure; G70.00 Myasthenia gravis without (acute) exacerbation; I08.3 Combined rheumatic disorders of mitral, aortic and tricuspid valves; E87.6 Hypokalemia; I11.0 Hypertensive heart disease with heart failure; Z79.899 Other long term (current) drug therapy; Z79.51 Long term (current) use of inhaled steroids; Z93.3 Colostomy status; Z79.01 Long term (current) use of anticoagulants
CPT/HCPCS: 36415; 71045; 80048; 80053; 82553; 82565; 83735; 83880; 84443; 84484; 85014; 85018; 85025; 85049; 93005; 93306; 96360; 96361; 96374; G0378; J1940; J7512

== ENCOUNTER 2020-04-03 19:32 | Emergency (ER) | payer MEDICARE ==
[2020-04-03] MEDS ORDERED: Oxymetazoline HCl 0.05% (30 ML BOT) ONE (21:09)
== END 2020-04-03 21:30 | disposition home or self-care (01) ==
LOC: ERS 19:32
DX: R04.0 Epistaxis (principal); I48.91 Unspecified atrial fibrillation; I11.0 Hypertensive heart disease with heart failure; I50.9 Heart failure, unspecified
CPT/HCPCS: 99283

== ENCOUNTER 2020-04-09 20:51 | Emergency (ER) | payer MEDICARE ==
[2020-04-09] MEDS ORDERED: Metoprolol Tartrate 5 MG/5 ML VIAL ONE (22:37)
[2020-04-09] MEDS ORDERED: Metoprolol Tartrate 50 MG TAB ONE (22:37)
[2020-04-09 22:48] LABS: #Basophils 0.1 thou/uL (0.0-0.2); #Eosinphils 0.1 thou/uL (0.0-0.7); #Lymphocytes 2.4 thou/uL (1.20-3.40); #Monocytes 0.8 thou/uL (0.11-0.59); #Neutrophils 5.4 thou/uL (1.40-6.50); %Basophils 0.9 % (0.0-1.0); %Eosinophils 1.6 % (0.0-10.0); %Lymphocytes 27.4 % (21.0-51.0); %Monocytes 8.9 % (0.0-10.0); %Neutrophils 61.1 % (42.0-75.0); Hemoglobin 11.4 g/dL (12.0-16.0); Mean Corpuscular HGB CONC 31.7 g/dL (32.0-36.0); Mean Corpuscular Hemoglobin 28.4 pg (27.0-31.0); Mean Corpuscular Volume 89.6 fL (78.0-98.0); Mean Platelet Volume 7.9 fL (7.4-10.4); Platelet Count 179 thou/uL (130-400); RBC Distribution Width 15.9 % (11.5-14.5); Red Blood Cell (RBC) Count 4.02 mill/uL (4.20-5.40); White Blood Cell (WBC) Count 8.9 thou/uL (4.8-10.8)
--- NOTE | 2020-04-09 22:52 | RAD ---
Chest one view HISTORY: Chest pain. COMPARISON: 03/06/2020. FINDINGS: Cardiac silhouette is magnified and enlarged. Mediastinum is midline with aortic calcificat ion. Pulmonary vasculature is unremarkable. Vertically oriented lobular lucency at the medial aspect of the right apex has the appearance of a pa rtially visualized right upper lobe adjacent to a prominent azygous fissure. Left hemidiaphragm lateral margin is somewhat poorly visualized, with subtle parenchymal opacity at t he left base. No evidence of pneumothorax. IMPRESSION : Mild left basilar parenchymal opacity. Clinical correlation regarding other signs and symptoms of lef t basilar pneumonitis is required. Cardiomegaly, stable. Atherosclerosis.
[2020-04-09 23:09] LABS: ALT (SGPT) 9 U/L (8-55); AST (SGOT) 15 U/L (5-34); Albumin 3.6 g/dL (3.4-4.8); Alkaline Phosphatase 75 U/L (40-110); Anion Gap 14 mmol/L (10-20); BUN (Urea Nitrogen) 32 mg/dL (9.8-20.1); Bilirubin, Total 0.4 mg/dL (0.2-1.2); Calc. Creatinine Clearance 0 mL/min (70-130); Carbon Dioxide 29 mmol/L (23-31); Chloride 106 mmol/L (98-107); Estimated GFR-MDRD 23; Globulin 2.2 g/dL (2.4-3.5); Glucose 107 mg/dL (83-110); Magnesium 2.3 mg/dL (1.6-2.6); Potassium 4.1 mmol/L (3.5-5.1); Protein, Total 5.8 g/dL (6.0-8.3); Sodium 145 mmol/L (136-145)
[2020-04-10] LABS: Bilirubin Negative (Negative); Blood, Urine Negative (Negative); Clarity Clear (Clear); Glucose, Urine (Dipstick) Normal (Negative); Ketone, Urine Trace mg/dL (Negative); Leukocyte Negative Leu/uL (Negative); Nitrite Negative (Negative); Protein, Urine (Dipstick) 20 mg/dL (Neg-Trace); Specific Gravity, Urine 1.026 (1.002-1.036); Urobilinogen Normal mg/dL (Less than 2); pH, Urine 6.5 (5.0-9.0)
[2020-04-10] MEDS ORDERED: Acetaminophen 500 MG TAB ONE (01:16)
== END 2020-04-10 01:13 | disposition home or self-care (01) ==
LOC: ERS 20:51
DX: M54.16 Radiculopathy, lumbar region (principal); M54.14 Radiculopathy, thoracic region; I48.91 Unspecified atrial fibrillation; I11.0 Hypertensive heart disease with heart failure; I50.9 Heart failure, unspecified; Z79.52 Long term (current) use of systemic steroids; Z79.899 Other long term (current) drug therapy
CPT/HCPCS: 36415; 51701; 71045; 80053; 81003; 83735; 84484; 85025; 93005; 96374

== ENCOUNTER 2020-09-20 18:38 | Inpatient (IN) | payer MEDICARE ==
[2020-09-20] MEDS ORDERED: Norepinephrine 8 MG/0.9% NS 250 ML ONE (18:43)
[2020-09-20 19:17] LABS: #Eosinphils 0.2 thou/uL (0.0-0.7); #Lymphocytes 1.6 thou/uL (1.20-3.40); #Monocytes 0.9 thou/uL (0.11-0.59); #Neutrophils 4.2 thou/uL (1.40-6.50); %Basophils 0.6 % (0.0-1.0); %Eosinophils 3.3 % (0.0-10.0); %Lymphocytes 23.3 % (21.0-51.0); %Monocytes 12.5 % (0.0-10.0); %Neutrophils 60.4 % (42.0-75.0); Hemoglobin 10.4 g/dL (12.0-16.0); Mean Corpuscular HGB CONC 31.7 g/dL (32.0-36.0); Mean Corpuscular Hemoglobin 28.6 pg (27.0-31.0); Mean Corpuscular Volume 90.1 fL (78.0-98.0); Mean Platelet Volume 8.4 fL (7.4-10.4); Platelet Count 192 thou/uL (130-400); RBC Distribution Width 16.2 % (11.5-14.5); Red Blood Cell (RBC) Count 3.64 mill/uL (4.20-5.40)
[2020-09-20 19:39] LABS: ALT (SGPT) 8 U/L (8-55); AST (SGOT) 20 U/L (5-34); Alkaline Phosphatase 60 U/L (40-110); Anion Gap 13 mmol/L (10-20); BUN (Urea Nitrogen) 13 mg/dL (9.8-20.1); Bilirubin, Total 0.3 mg/dL (0.2-1.2); Calc. Creatinine Clearance 0 mL/min (70-130); Calcium 8.5 mg/dL (7.8-10.44); Carbon Dioxide 33 mmol/L (23-31); Chloride 99 mmol/L (98-107); Globulin 2.5 g/dL (2.4-3.5); Glucose 116 mg/dL (83-110); Potassium 3.6 mmol/L (3.5-5.1); Protein, Total 5.5 g/dL (5.8-8.1); Sodium 141 mmol/L (136-145)
[2020-09-20] MEDS ORDERED: Fentanyl 100 MCG/2 ML VIAL ONE ×2 (19:41→19:58)
[2020-09-20] MEDS ORDERED: Cefepime 2 GM VIAL ONE (19:41)
[2020-09-20] MEDS ORDERED: Fentanyl CADD 100 ML IV SCH ×2 (19:45→21:30)
[2020-09-20] MEDS ORDERED: Vancomycin 1 GM/200 ML BAG ONE (19:49)
[2020-09-20 19:55] LABS: Actual Bicarbonate (HCO3a) 28.5 mEq/L (22-28); Base Excess (BEa) 6.6 mEq/L (-2.0 to +3.0); CO2 Tension 31.2 mmHg (35.0-45.0); O2 Tension (PaO2), arterial 276.5 mmHg (> 60.0); pH, Arterial 7.58 (7.35-7.45)
[2020-09-20 19:56] LABS: Analyzer IN Cardio ER; Carboxyhemoglobin (COHb) 0.3 gm% (0.0-3.0); Hemoglobin (Hb) 10.4 g/dL (12.0-16.0)
[2020-09-20 19:57] LABS: Puncture Site LRA
[2020-09-20 20:29] LABS: SARS-CoV-2 NAA Rapid Test Not Detected (NotDetected)
[2020-09-20 21:13] LABS: Bacteria/HPF 2+ HPF (None Seen); Bilirubin Negative (Negative); Blood, Urine 1+ (Negative); Glucose, Urine (Dipstick) Normal (Negative); Ketone, Urine Negative (Negative); Leukocyte 250 Leu/uL (Negative); Nitrite Negative (Negative); Protein, Urine (Dipstick) 70 mg/dL (Neg-Trace); Specific Gravity, Urine 1.018 (1.002-1.036); Squamous Epithelial 0-3 HPF (0-3); Urobilinogen Normal mg/dL (Less than 2); WBC/HPF Greater than 50 HPF (0-3); pH, Urine 5.5 (5.0-9.0)
[2020-09-20 21:14] LABS: Amphetamine Not Detected (NotDetected); Barbiturates Screen Not Detected (NotDetected); Benzodiazepine Screen Not Detected (NotDetected); Cocaine Metabolite Screen Not Detected (NotDetected); Medtox Control Line Valid? VALID (VALID); Medtox Reader # READER 4; Methadone Not Detected (NotDetected); Methamphetamine Not Detected (NotDetected); Opiate Screen Not Detected (NotDetected); Oxycodone Screen Not Detected (NotDetected); Phencyclidine (PCP) Not Detected (NotDetected); THC/Cannabinoid Screen Not Detected (NotDetected); Tricyclic Screen Not Detected (NotDetected)
[2020-09-20] MEDS ORDERED: Norepinephrine 8 MG/0.9% NS 250 ML IVPB PRN (21:16)
[2020-09-20] MEDS ORDERED: Acetaminophen 650 MG Suppository PR PRN (21:16)
[2020-09-20] MEDS ORDERED: Electrolyte Replacement Protocol 1 EACH IVPB PRN (21:16)
[2020-09-20 21:23] LABS: Calcium Oxalate Crystals 2+ HPF (None Seen); Clarity Cloudy (Clear)
[2020-09-20] MEDS ORDERED: DISCONTINUE PREVIOUS NARCOTIC PAIN MEDICATIONS AND BENZODIAZEPINES FS SCH (21:30)
[2020-09-20] MEDS ORDERED: Propofol BOLUS 1,000 MG/100 ML VIAL IV PRN (21:30)
[2020-09-20] MEDS ORDERED: Ventilator Sedation Protocol 1 EACH FS SCH (21:30)
[2020-09-20] MEDS ORDERED: Lactated Ringer's 500 ML IV SCH ×2 (21:30→22:00)
[2020-09-20] MEDS ORDERED: Fentanyl BOLUS 250 ML IVPB PRN (21:30)
[2020-09-20] MEDS ORDERED: Morphine 2 MG/ML VIAL SLOW IVP PRN (21:30)
[2020-09-20 22:22] LABS: Acetaminophen Less than 6.0 mcg/mL (10.0-30.0); Alcohol Less than 10 mg/dL (Less than 10); Salicylate Less than 8.0 mg/dL (15.0-30.0)
[2020-09-21] MEDS: Lorazepam 2 MG/ML VIAL SLOW IVP PRN (01:43)
[2020-09-21] MEDS: Propofol 1,000 MG/100 ML VIAL IV PRN ×2 (01:48→20:29)
[2020-09-21] MEDS ORDERED: Lactated Ringer's 1,000 ML IV SCH ×2 (02:45→06:36)
[2020-09-21 04:47] LABS: Hemoglobin 10.6 g/dL (12.0-16.0); Mean Corpuscular HGB CONC 32.2 g/dL (32.0-36.0); Mean Corpuscular Hemoglobin 28.8 pg (27.0-31.0); Mean Corpuscular Volume 89.3 fL (78.0-98.0); Mean Platelet Volume 8.6 fL (7.4-10.4); Platelet Count 176 thou/uL (130-400); RBC Distribution Width 16.3 % (11.5-14.5); Red Blood Cell (RBC) Count 3.67 mill/uL (4.20-5.40); White Blood Cell (WBC) Count 9.6 thou/uL (4.8-10.8)
[2020-09-21 04:48] LABS: Anion Gap 13 mmol/L (10-20); BUN (Urea Nitrogen) 14 mg/dL (9.8-20.1); Band 23 % (5-11); Calc. Creatinine Clearance 47 mL/min (70-130); Calcium 8.1 mg/dL (7.8-10.44); Carbon Dioxide 33 mmol/L (23-31); Chloride 100 mmol/L (98-107); Glucose 78 mg/dL (83-110); Lymphocytes 11 % (21-51); MDiff Complete? YES; Metamyelocyte 1 % (0-0); Monocytes 10 % (0-10); Neutrophil 54 % (42-75); Platelet Morphology Comment Appears Adequate; Potassium 3.6 mmol/L (3.5-5.1); Reactive Lymphocytes 1 % (0-10); Sodium 142 mmol/L (136-145)
[2020-09-21 07:42] LABS: Actual Bicarbonate (HCO3a) 28.1 mEq/L (22-28); Base Excess (BEa) 6.3 mEq/L (-2.0 to +3.0); CO2 Tension 30.5 mmHg (35.0-45.0); Calcium, Ionized (arterial) 1.08 mmol/L (1.12-1.30); Carboxyhemoglobin (COHb) 0.4 gm% (0.0-3.0); Hemoglobin (Hb) 10.5 g/dL (12.0-16.0); Potassium - ABG Lab 3.45 mmol/L (3.70-5.30)
[2020-09-21 07:43] LABS: ALV-art Gradient 188.075 mmHg (0-20); Puncture Site RRA; pH, Arterial 7.58 (7.35-7.45)
[2020-09-21] MEDS ORDERED: Hydrocortisone Sod Succ/PF 250 mg/2 ml Vial SLOW IVP SCH (08:45)
[2020-09-21] MEDS ORDERED: Vancomycin HCl 1.5 GM in Sodium Chloride 0.9% 250 ML 300 ML IVPB SCH (09:00)
[2020-09-21] MEDS ORDERED: Famotidine/PF 20 mg/2ml Vial SLOW IVP SCH (09:00)
[2020-09-21] MEDS ORDERED: Metoprolol Tartrate 50 MG TAB PO SCH (09:00)
[2020-09-21] MEDS ORDERED: Enoxaparin Sodium 40 MG/0.4 ML SYRINGE SC SCH (09:00)
[2020-09-21] MEDS ORDERED: Hydrocortisone Sod Succ/PF 100 mg/2 ml Vial IVP SCH (09:00)
[2020-09-21 09:20] LABS: CKMB 1.1 ng/mL (0-6.6)
[2020-09-21] MEDS: Lactated Ringer's 1,000 ML IV SCH ×2 (09:37→20:22)
[2020-09-21] MEDS: Cefepime 2 GM in Sodium Chloride 0.9% 100 ML IVPB SCH (09:39)
[2020-09-21] MEDS: Pyridostigmine Bromide IR 60 MG TAB PER TUBE SCH ×3 (09:42→20:21)
[2020-09-21] MEDS: Famotidine/PF 20 mg/2ml Vial SLOW IVP SCH ×2 (09:42→20:21)
[2020-09-21] MEDS: Digoxin 0.5 MG/2 ML AMP SLOW IVP SCH (09:45)
[2020-09-21] MEDS: Apixaban 2.5 MG TAB PO SCH ×2 (09:47→20:21)
[2020-09-21] MEDS: Hydrocortisone Sod Succ/PF 100 mg/2 ml Vial IVP SCH ×2 (16:00→20:22)
[2020-09-21] MEDS: Vancomycin HCl 750 MG in Sodium Chloride 0.9% 250 ML 250 ML IVPB SCH (17:45)
[2020-09-22] MEDS: Hydrocortisone Sod Succ/PF 100 mg/2 ml Vial IVP SCH ×4 (03:21→21:27)
[2020-09-22 07:38] LABS: Base Excess (BEa) 4.8 mEq/L (-2.0 to +3.0); CO2 Tension 41.4 mmHg (35.0-45.0); Calcium, Ionized (arterial) 1.13 mmol/L (1.12-1.30); O2 Tension (PaO2), arterial 93.8 mmHg (> 60.0); Potassium - ABG Lab 3.75 mmol/L (3.70-5.30); pH, Arterial 7.46 (7.35-7.45)
[2020-09-22 07:44] LABS: Puncture Site RBA
[2020-09-22 08:35] LABS: Hemoglobin 11.5 g/dL (12.0-16.0); Mean Corpuscular HGB CONC 31.8 g/dL (32.0-36.0); Mean Corpuscular Hemoglobin 27.9 pg (27.0-31.0); Mean Corpuscular Volume 87.8 fL (78.0-98.0); Mean Platelet Volume 8.6 fL (7.4-10.4); Platelet Count 162 thou/uL (130-400); RBC Distribution Width 16.4 % (11.5-14.5); Red Blood Cell (RBC) Count 4.14 mill/uL (4.20-5.40); White Blood Cell (WBC) Count 12.6 thou/uL (4.8-10.8)
[2020-09-22 08:52] LABS: Anion Gap 16 mmol/L (10-20); BUN (Urea Nitrogen) 17 mg/dL (9.8-20.1); Calc. Creatinine Clearance 44 mL/min (70-130); Calcium 8.3 mg/dL (7.8-10.44); Carbon Dioxide 26 mmol/L (23-31); Chloride 102 mmol/L (98-107); Glucose 88 mg/dL (83-110); Potassium 3.8 mmol/L (3.5-5.1); Sodium 140 mmol/L (136-145)
[2020-09-22] MEDS: Lactated Ringer's 1,000 ML IV SCH (08:52)
[2020-09-22] MEDS: Digoxin 0.5 MG/2 ML AMP SLOW IVP SCH (08:53)
[2020-09-22] MEDS: Apixaban 2.5 MG TAB PO SCH ×2 (08:53→21:27)
[2020-09-22] MEDS: Pyridostigmine Bromide IR 60 MG TAB PER TUBE SCH ×3 (08:53→21:26)
[2020-09-22] MEDS: Famotidine/PF 20 mg/2ml Vial SLOW IVP SCH (08:54)
[2020-09-22 09:18] LABS: Band 6 % (5-11); Lymphocytes 10 % (21-51); MDiff Complete? YES; Monocytes 5 % (0-10); Neutrophil 79 % (42-75); Platelet Morphology Comment Appears Adequate; Polychromasia SLIGHT = 2-3 cells (100X) (0-2/hpf)
[2020-09-22] MEDS: Cefepime 2 GM in Sodium Chloride 0.9% 100 ML IVPB SCH (09:24)
[2020-09-22] MEDS ORDERED: Sodium Chloride 0.9% 500 ML IV SCH (09:30)
[2020-09-22] MEDS: Propofol 1,000 MG/100 ML VIAL IV PRN (13:00)
[2020-09-22 17:29] LABS: Vancomycin, Trough 12.1 ug/mL
[2020-09-22] MEDS: Vancomycin HCl 750 MG in Sodium Chloride 0.9% 250 ML 250 ML IVPB SCH (18:06)
[2020-09-23] MEDS: Lactated Ringer's 1,000 ML IV SCH ×2 (04:12→17:49)
[2020-09-23] MEDS: Hydrocortisone Sod Succ/PF 100 mg/2 ml Vial IVP SCH ×4 (04:13→20:25)
[2020-09-23 04:49] LABS: Anion Gap 14 mmol/L (10-20); BUN (Urea Nitrogen) 20 mg/dL (9.8-20.1); Calc. Creatinine Clearance 48 mL/min (70-130); Calcium 8.4 mg/dL (7.8-10.44); Carbon Dioxide 27 mmol/L (23-31); Chloride 104 mmol/L (98-107); Glucose 91 mg/dL (83-110); Potassium 3.6 mmol/L (3.5-5.1); Sodium 141 mmol/L (136-145)
[2020-09-23 05:22] LABS: Band 2 % (5-11); Hemoglobin 10.3 g/dL (12.0-16.0); Lymphocytes 8 % (21-51); MDiff Complete? YES; Mean Corpuscular HGB CONC 32.1 g/dL (32.0-36.0); Mean Corpuscular Hemoglobin 28.2 pg (27.0-31.0); Mean Corpuscular Volume 87.7 fL (78.0-98.0); Mean Platelet Volume 8.4 fL (7.4-10.4); Monocytes 4 % (0-10); Neutrophil 86 % (42-75); Platelet Count 195 thou/uL (130-400); RBC Distribution Width 16.1 % (11.5-14.5); Red Blood Cell (RBC) Count 3.64 mill/uL (4.20-5.40); White Blood Cell (WBC) Count 15.7 thou/uL (4.8-10.8)
[2020-09-23 07:24] LABS: Actual Bicarbonate (HCO3a) 28.7 mEq/L (22-28); Base Excess (BEa) 4.2 mEq/L (-2.0 to +3.0); CO2 Tension 43.1 mmHg (35.0-45.0); Calcium, Ionized (arterial) 1.19 mmol/L (1.12-1.30); Carboxyhemoglobin (COHb) 0.4 gm% (0.0-3.0); Hemoglobin (Hb) 11.3 g/dL (12.0-16.0); O2 Tension (PaO2), arterial 86.2 mmHg (> 60.0); Potassium - ABG Lab 3.54 mmol/L (3.70-5.30); pH, Arterial 7.44 (7.35-7.45)
[2020-09-23 07:36] LABS: Puncture Site RBA
[2020-09-23 07:37] LABS: ALV-art Gradient 145.125 mmHg (0-20)
[2020-09-23] MEDS ORDERED: Furosemide 20 MG TAB PO SCH (09:00)
[2020-09-23] MEDS: Pyridostigmine Bromide IR 60 MG TAB PER TUBE SCH ×3 (09:14→20:25)
[2020-09-23] MEDS: Apixaban 2.5 MG TAB PO SCH ×2 (09:14→20:26)
[2020-09-23] MEDS: Famotidine/PF 20 mg/2ml Vial SLOW IVP SCH (09:14)
[2020-09-23] MEDS ORDERED: OCTAGAM 10% (10 GM/100 ML VIAL) IVPB SCH (09:15)
[2020-09-23] MEDS: Digoxin 0.5 MG/2 ML AMP SLOW IVP SCH (09:15)
[2020-09-23] MEDS ORDERED: Sodium Chloride 0.9% 500 ML IV SCH (09:15)
[2020-09-23] MEDS: Cefepime 2 GM in Sodium Chloride 0.9% 100 ML IVPB SCH (09:20)
[2020-09-23] MEDS ORDERED: VANCOMYCIN IVPB PRN (09:38)
[2020-09-23] MEDS ORDERED: Pancrelipase DR 12,000 1 CAP FS PRN (10:00)
[2020-09-23] MEDS ORDERED: Sodium Bicarbonate Tab 325 MG TAB PER TUBE PRN (10:00)
[2020-09-23] MEDS ORDERED: OCTAGAM 10% 20 GM in Admixture Fee 1 EACH IVPB SCH (10:00)
[2020-09-23] MEDS: OCTAGAM 10% 20 GM in Admixture Fee 1 EACH IVPB SCH (10:15)
[2020-09-23] MEDS: Propofol 1,000 MG/100 ML VIAL IV PRN (14:30)
[2020-09-23] MEDS: Vancomycin HCl 750 MG in Sodium Chloride 0.9% 250 ML 250 ML IVPB SCH (17:49)
[2020-09-24] MEDS: Hydrocortisone Sod Succ/PF 100 mg/2 ml Vial IVP SCH (03:47)
[2020-09-24 04:37] LABS: Anion Gap 11 mmol/L (10-20); BUN (Urea Nitrogen) 25 mg/dL (9.8-20.1); Calc. Creatinine Clearance 48 mL/min (70-130); Calcium 7.9 mg/dL (7.8-10.44); Chloride 107 mmol/L (98-107); Glucose 142 mg/dL (83-110); Sodium 144 mmol/L (136-145)
[2020-09-24 04:42] LABS: Carbon Dioxide 29 mmol/L (23-31)
[2020-09-24] MEDS ORDERED: Potassium Bicarbonate/Cit Ac 20 MEQ TAB PER TUBE SCH (06:15)
[2020-09-24 06:23] LABS: Band 8 % (5-11); Hemoglobin 10.2 g/dL (12.0-16.0); Lymphocytes 7 % (21-51); MDiff Complete? YES; Mean Corpuscular HGB CONC 32.1 g/dL (32.0-36.0); Mean Corpuscular Hemoglobin 28.1 pg (27.0-31.0); Mean Corpuscular Volume 87.6 fL (78.0-98.0); Mean Platelet Volume 8.4 fL (7.4-10.4); Monocytes 4 % (0-10); Neutrophil 81 % (42-75); Platelet Count 202 thou/uL (130-400); RBC Distribution Width 15.9 % (11.5-14.5); Red Blood Cell (RBC) Count 3.62 mill/uL (4.20-5.40); White Blood Cell (WBC) Count 14.4 thou/uL (4.8-10.8)
[2020-09-24 07:16] LABS: Actual Bicarbonate (HCO3a) 29.1 mEq/L (22-28); Base Excess (BEa) 4.7 mEq/L (-2.0 to +3.0); CO2 Tension 42.1 mmHg (35.0-45.0); Calcium, Ionized (arterial) 1.14 mmol/L (1.12-1.30); Carboxyhemoglobin (COHb) 0.2 gm% (0.0-3.0); Hemoglobin (Hb) 11.5 g/dL (12.0-16.0); O2 Tension (PaO2), arterial 100.7 mmHg (> 60.0); Potassium - ABG Lab 2.91 mmol/L (3.70-5.30); pH, Arterial 7.46 (7.35-7.45)
[2020-09-24 07:23] LABS: Puncture Site RRA
[2020-09-24 07:24] LABS: ALV-art Gradient 131.875 mmHg (0-20)
[2020-09-24] MEDS: Famotidine/PF 20 mg/2ml Vial SLOW IVP SCH (09:15)
[2020-09-24] MEDS: Furosemide 40 MG/4 ML VIAL SLOW IVP SCH ×2 (09:15→20:49)
[2020-09-24] MEDS: Apixaban 2.5 MG TAB PO SCH ×2 (09:15→20:49)
[2020-09-24] MEDS: predniSONE 20 MG TAB PO SCH (09:15)
[2020-09-24] MEDS: Pyridostigmine Bromide IR 60 MG TAB PER TUBE SCH ×3 (09:15→20:49)
[2020-09-24] MEDS: Digoxin 0.5 MG/2 ML AMP SLOW IVP SCH (09:15)
[2020-09-24] MEDS: Propofol 1,000 MG/100 ML VIAL IV PRN (09:15)
[2020-09-24] MEDS: OCTAGAM 10% 20 GM in Admixture Fee 1 EACH IVPB SCH (10:25)
[2020-09-24 17:03] LABS: Vancomycin, Trough 12.9 ug/mL
[2020-09-24] MEDS: Vancomycin HCl 750 MG in Sodium Chloride 0.9% 250 ML 250 ML IVPB SCH (17:43)
[2020-09-24] MEDS ORDERED: Potassium Chloride 20 MEQ TAB PO SCH (18:15)
[2020-09-24] MEDS ORDERED: Potassium Bicarbonate/Cit Ac 20 MEQ TAB PO SCH (18:15)
[2020-09-25 00:19] LABS: Potassium 3.1 mmol/L (3.5-5.1)
[2020-09-25] MEDS ORDERED: Potassium Bicarbonate/Cit Ac 20 MEQ TAB PER TUBE SCH (04:00)
[2020-09-25 04:36] LABS: Band 1 % (5-11); Hemoglobin 9.6 g/dL (12.0-16.0); Lymphocytes 14 % (21-51); MDiff Complete? YES; Mean Corpuscular HGB CONC 31.8 g/dL (32.0-36.0); Mean Corpuscular Hemoglobin 27.8 pg (27.0-31.0); Mean Corpuscular Volume 87.2 fL (78.0-98.0); Mean Platelet Volume 8.4 fL (7.4-10.4); Monocytes 17 % (0-10); Neutrophil 68 % (42-75); Platelet Count 177 thou/uL (130-400); RBC Distribution Width 15.7 % (11.5-14.5); Red Blood Cell (RBC) Count 3.44 mill/uL (4.20-5.40); White Blood Cell (WBC) Count 10.5 thou/uL (4.8-10.8)
[2020-09-25 05:10] LABS: Anion Gap 11 mmol/L (10-20); BUN (Urea Nitrogen) 34 mg/dL (9.8-20.1); Calc. Creatinine Clearance 53 mL/min (70-130); Calcium 7.6 mg/dL (7.8-10.44); Carbon Dioxide 32 mmol/L (23-31); Chloride 104 mmol/L (98-107); Glucose 99 mg/dL (83-110); Magnesium 1.9 mg/dL (1.6-2.6); Sodium 144 mmol/L (136-145)
[2020-09-25 05:21] LABS: Potassium 2.8 mmol/L (3.5-5.1)
[2020-09-25] MEDS ORDERED: Magnesium 2 GM/50 ML 2 GM in Premix Bag 1 BAG IVPB SCH (06:30)
[2020-09-25] MEDS ORDERED: Electrolyte Replacement Protocol FS PRN (06:30)
[2020-09-25] MEDS ORDERED: Potassium Chloride 20 MEQ TAB PO SCH (07:15)
[2020-09-25 07:50] LABS: Actual Bicarbonate (HCO3a) 32.4 mEq/L (22-28); Base Excess (BEa) 8.2 mEq/L (-2.0 to +3.0); CO2 Tension 43.4 mmHg (35.0-45.0); Calcium, Ionized (arterial) 1.09 mmol/L (1.12-1.30); Carboxyhemoglobin (COHb) 0.7 gm% (0.0-3.0); Hemoglobin (Hb) 12.5 g/dL (12.0-16.0); O2 Tension (PaO2), arterial 63.5 mmHg (> 60.0); Potassium - ABG Lab 3.16 mmol/L (3.70-5.30); Puncture Site RRA; pH, Arterial 7.49 (7.35-7.45)
[2020-09-25] MEDS: Pyridostigmine Bromide IR 60 MG TAB PER TUBE SCH ×3 (09:03→20:45)
[2020-09-25] MEDS: Famotidine 20 MG TAB PO SCH (09:03)
[2020-09-25] MEDS: Apixaban 2.5 MG TAB PO SCH ×2 (09:03→20:45)
[2020-09-25] MEDS: predniSONE 20 MG TAB PO SCH (09:04)
[2020-09-25] MEDS: Metoprolol Tartrate 25 MG TAB PO SCH ×2 (09:04→20:45)
[2020-09-25] MEDS: Digoxin 0.5 MG/2 ML AMP SLOW IVP SCH (09:04)
[2020-09-25] MEDS: Potassium Bicarbonate/Cit Ac 20 MEQ TAB PO SCH ×2 (09:17→12:01)
[2020-09-25] MEDS: OCTAGAM 10% 20 GM in Admixture Fee 1 EACH IVPB SCH (09:47)
[2020-09-25 15:21] LABS: Potassium 4.2 mmol/L (3.5-5.1)
[2020-09-25] MEDS: Vancomycin HCl 750 MG in Sodium Chloride 0.9% 250 ML 250 ML IVPB SCH (18:15)
[2020-09-26 04:43] LABS: Hemoglobin 9.5 g/dL (12.0-16.0); Mean Corpuscular HGB CONC 32.6 g/dL (32.0-36.0); Mean Corpuscular Hemoglobin 28.5 pg (27.0-31.0); Mean Corpuscular Volume 87.3 fL (78.0-98.0); Mean Platelet Volume 8.4 fL (7.4-10.4); Platelet Count 144 thou/uL (130-400); RBC Distribution Width 15.8 % (11.5-14.5); Red Blood Cell (RBC) Count 3.32 mill/uL (4.20-5.40); White Blood Cell (WBC) Count 7.6 thou/uL (4.8-10.8)
[2020-09-26 05:04] LABS: Anion Gap 8 mmol/L (10-20); BUN (Urea Nitrogen) 33 mg/dL (9.8-20.1); Calc. Creatinine Clearance 63 mL/min (70-130); Calcium 7.9 mg/dL (7.8-10.44); Carbon Dioxide 34 mmol/L (23-31); Chloride 104 mmol/L (98-107); Glucose 96 mg/dL (83-110); Magnesium 2.5 mg/dL (1.6-2.6); Potassium 3.6 mmol/L (3.5-5.1); Sodium 142 mmol/L (136-145)
[2020-09-26 05:06] LABS: Eosinophils 1 % (0-10); Lymphocytes 18 % (21-51); MDiff Complete? YES; Metamyelocyte 1 % (0-0); Monocytes 6 % (0-10); Neutrophil 73 % (42-75); Reactive Lymphocytes 1 % (0-10)
[2020-09-26 06:59] LABS: Actual Bicarbonate (HCO3a) 35.1 mEq/L (22-28); Base Excess (BEa) 11.5 mEq/L (-2.0 to +3.0); Calcium, Ionized (arterial) 1.14 mmol/L (1.12-1.30); Carboxyhemoglobin (COHb) 0.3 gm% (0.0-3.0); Hemoglobin (Hb) 10.1 g/dL (12.0-16.0); O2 Tension (PaO2), arterial 63.6 mmHg (> 60.0); Potassium - ABG Lab 3.44 mmol/L (3.70-5.30); pH, Arterial 7.54 (7.35-7.45)
[2020-09-26 07:11] LABS: Puncture Site RRA
[2020-09-26] MEDS: Sodium Chloride 0.45% 1,000 ML IV SCH (08:50)
[2020-09-26] MEDS: guaiFENesin 200 MG TAB PER TUBE SCH ×3 (08:52→21:25)
[2020-09-26] MEDS: Amlodipine 10 MG TAB PER TUBE SCH (08:53)
[2020-09-26] MEDS: Apixaban 2.5 MG TAB PO SCH ×2 (08:53→21:25)
[2020-09-26] MEDS: predniSONE 20 MG TAB PO SCH (08:53)
[2020-09-26] MEDS: Digoxin 0.5 MG/2 ML AMP SLOW IVP SCH (08:53)
[2020-09-26] MEDS: Pyridostigmine Bromide IR 60 MG TAB PER TUBE SCH ×3 (08:53→21:25)
[2020-09-26] MEDS: Famotidine 20 MG TAB PO SCH (08:53)
[2020-09-26] MEDS: Albuterol Sulfate 2.5 mg/3 ml Neb NEB SCH ×2 (13:49→18:50)
[2020-09-26] MEDS ORDERED: Morphine 4 MG/ML VIAL ONE (14:26)
[2020-09-26] MEDS: Propofol 1,000 MG/100 ML VIAL IV PRN (14:32)
[2020-09-26] MEDS: Vancomycin HCl 750 MG in Sodium Chloride 0.9% 250 ML 250 ML IVPB SCH (17:40)
[2020-09-27] MEDS: Albuterol Sulfate 2.5 mg/3 ml Neb NEB SCH ×4 (00:08→18:55)
[2020-09-27] MEDS: Sodium Chloride 0.45% 1,000 ML IV SCH (01:20)
[2020-09-27] MEDS: guaiFENesin 200 MG TAB PER TUBE SCH ×4 (03:00→20:14)
[2020-09-27 04:06] LABS: Mean Corpuscular HGB CONC 31.8 g/dL (32.0-36.0); Mean Corpuscular Hemoglobin 27.9 pg (27.0-31.0); Mean Corpuscular Volume 87.9 fL (78.0-98.0); Mean Platelet Volume 8.6 fL (7.4-10.4); Platelet Count 129 thou/uL (130-400); RBC Distribution Width 15.8 % (11.5-14.5); Red Blood Cell (RBC) Count 3.22 mill/uL (4.20-5.40); White Blood Cell (WBC) Count 7.8 thou/uL (4.8-10.8)
[2020-09-27 04:07] LABS: Band 3 % (5-11); Eosinophils 1 % (0-10); Hypochromia SLIGHT = 6-15 cells (100X) (0-5/hpf); Lymphocytes 11 % (21-51); MDiff Complete? YES; Monocytes 12 % (0-10); Neutrophil 73 % (42-75); Platelet Morphology Comment Appears Adequate
[2020-09-27 04:08] LABS: Anion Gap 7 mmol/L (10-20); BUN (Urea Nitrogen) 38 mg/dL (9.8-20.1); Calc. Creatinine Clearance 66 mL/min (70-130); Calcium 7.6 mg/dL (7.8-10.44); Carbon Dioxide 34 mmol/L (23-31); Chloride 104 mmol/L (98-107); Glucose 113 mg/dL (83-110); Potassium 3.4 mmol/L (3.5-5.1); Sodium 142 mmol/L (136-145)
[2020-09-27] MEDS ORDERED: Potassium Bicarbonate/Cit Ac 20 MEQ TAB PER TUBE SCH (04:30)
[2020-09-27 08:00] LABS: Actual Bicarbonate (HCO3a) 35.7 mEq/L (22-28); Base Excess (BEa) 11.1 mEq/L (-2.0 to +3.0); CO2 Tension 47.9 mmHg (35.0-45.0); Calcium, Ionized (arterial) 1.11 mmol/L (1.12-1.30); Carboxyhemoglobin (COHb) 0.3 gm% (0.0-3.0); Hemoglobin (Hb) 9.9 g/dL (12.0-16.0); O2 Tension (PaO2), arterial 91.9 mmHg (> 60.0); Potassium - ABG Lab 4.17 mmol/L (3.70-5.30); pH, Arterial 7.49 (7.35-7.45)
[2020-09-27 08:01] LABS: Puncture Site RRA
[2020-09-27 08:02] LABS: ALV-art Gradient 133.425 mmHg (0-20)
[2020-09-27] MEDS: Lactated Ringer's 1,000 ML IV SCH (08:13)
[2020-09-27] MEDS: Cefepime 2 GM in Sodium Chloride 0.9% 100 ML IVPB SCH (08:13)
[2020-09-27] MEDS: Apixaban 2.5 MG TAB PO SCH ×2 (08:22→20:14)
[2020-09-27] MEDS: Digoxin 0.5 MG/2 ML AMP SLOW IVP SCH (08:22)
[2020-09-27] MEDS: Pyridostigmine Bromide IR 60 MG TAB PER TUBE SCH ×3 (08:23→20:14)
[2020-09-27] MEDS: Amlodipine 10 MG TAB PER TUBE SCH (08:23)
[2020-09-27] MEDS: predniSONE 20 MG TAB PO SCH (08:23)
[2020-09-27] MEDS: Famotidine 20 MG TAB PO SCH (08:23)
[2020-09-27] MEDS: Lorazepam 2 MG/ML VIAL SLOW IVP PRN ×2 (09:18→15:52)
[2020-09-27] MEDS: Propofol 1,000 MG/100 ML VIAL IV PRN (09:18)
[2020-09-27] MEDS ORDERED: acetaZOLAMIDE Sodium 500 mg Vial IVP SCH (10:15)
[2020-09-27] MEDS ORDERED: Haloperidol Lactate 5 MG/ML VIAL ONE (12:25)
[2020-09-27] MEDS: Vancomycin HCl 750 MG in Sodium Chloride 0.9% 250 ML 250 ML IVPB SCH (18:13)
[2020-09-28] MEDS: Albuterol Sulfate 2.5 mg/3 ml Neb NEB SCH ×4 (00:14→18:06)
[2020-09-28] MEDS: guaiFENesin 200 MG TAB PER TUBE SCH ×4 (03:00→21:01)
[2020-09-28 03:34] LABS: Hemoglobin 9.2 g/dL (12.0-16.0); Mean Corpuscular HGB CONC 32.3 g/dL (32.0-36.0); Mean Corpuscular Hemoglobin 28.3 pg (27.0-31.0); Mean Corpuscular Volume 87.5 fL (78.0-98.0); Mean Platelet Volume 8.5 fL (7.4-10.4); Platelet Count 166 thou/uL (130-400); RBC Distribution Width 15.7 % (11.5-14.5); Red Blood Cell (RBC) Count 3.25 mill/uL (4.20-5.40); White Blood Cell (WBC) Count 10.5 thou/uL (4.8-10.8)
[2020-09-28 03:49] LABS: Anion Gap 9 mmol/L (10-20); BUN (Urea Nitrogen) 31 mg/dL (9.8-20.1); Calc. Creatinine Clearance 70 mL/min (70-130); Calcium 7.8 mg/dL (7.8-10.44); Carbon Dioxide 30 mmol/L (23-31); Chloride 104 mmol/L (98-107); Glucose 107 mg/dL (83-110); Potassium 3.5 mmol/L (3.5-5.1); Sodium 139 mmol/L (136-145)
[2020-09-28 04:13] LABS: Eosinophils 1 % (0-10); Lymphocytes 21 % (21-51); MDiff Complete? YES; Monocytes 3 % (0-10); Neutrophil 74 % (42-75); Platelet Morphology Comment Appears Adequate
[2020-09-28] MEDS ORDERED: Potassium Bicarbonate/Cit Ac 20 MEQ TAB PER TUBE SCH (04:30)
[2020-09-28 08:01] LABS: Actual Bicarbonate (HCO3a) 30.3 mEq/L (22-28); Base Excess (BEa) 6.3 mEq/L (-2.0 to +3.0); Calcium, Ionized (arterial) 1.15 mmol/L (1.12-1.30); Carboxyhemoglobin (COHb) 0.3 gm% (0.0-3.0); Hemoglobin (Hb) 9.5 g/dL (12.0-16.0); O2 Tension (PaO2), arterial 75.3 mmHg (> 60.0); Potassium - ABG Lab 3.67 mmol/L (3.70-5.30); pH, Arterial 7.49 (7.35-7.45)
[2020-09-28 08:02] LABS: Puncture Site RRA
[2020-09-28] MEDS: Lorazepam 2 MG/ML VIAL SLOW IVP PRN ×2 (08:41→14:14)
[2020-09-28] MEDS: Digoxin 0.5 MG/2 ML AMP SLOW IVP SCH (08:42)
[2020-09-28] MEDS: predniSONE 20 MG TAB PO SCH (08:42)
[2020-09-28] MEDS: Pyridostigmine Bromide IR 60 MG TAB PER TUBE SCH ×3 (08:43→21:01)
[2020-09-28] MEDS: Famotidine 20 MG TAB PO SCH (08:43)
[2020-09-28] MEDS: Amlodipine 10 MG TAB PER TUBE SCH (08:44)
[2020-09-28] MEDS: Apixaban 2.5 MG TAB PO SCH ×2 (08:44→21:00)
[2020-09-28] MEDS: Propofol 1,000 MG/100 ML VIAL IV PRN (17:29)
[2020-09-29] MEDS: Albuterol Sulfate 2.5 mg/3 ml Neb NEB SCH ×4 (00:29→18:50)
[2020-09-29] MEDS: guaiFENesin 200 MG TAB PER TUBE SCH ×4 (02:22→20:58)
[2020-09-29 04:05] LABS: Anion Gap 8 mmol/L (10-20); BUN (Urea Nitrogen) 31 mg/dL (9.8-20.1); Band 4 % (5-11); Calc. Creatinine Clearance 77 mL/min (70-130); Calcium 8.1 mg/dL (7.8-10.44); Carbon Dioxide 31 mmol/L (23-31); Chloride 105 mmol/L (98-107); Glucose 91 mg/dL (83-110); Hypochromia SLIGHT = 6-15 cells (100X) (0-5/hpf); Lymphocytes 8 % (21-51); MDiff Complete? YES; Mean Corpuscular HGB CONC 31.9 g/dL (32.0-36.0); Mean Corpuscular Hemoglobin 27.7 pg (27.0-31.0); Mean Corpuscular Volume 86.9 fL (78.0-98.0); Mean Platelet Volume 8.5 fL (7.4-10.4); Monocytes 10 % (0-10); Neutrophil 78 % (42-75); Platelet Count 193 thou/uL (130-400); Platelet Morphology Comment Appears Adequate; Potassium 3.5 mmol/L (3.5-5.1); RBC Distribution Width 15.5 % (11.5-14.5); Red Blood Cell (RBC) Count 3.26 mill/uL (4.20-5.40); Sodium 140 mmol/L (136-145); White Blood Cell (WBC) Count 9.3 thou/uL (4.8-10.8)
[2020-09-29] MEDS: Propofol 1,000 MG/100 ML VIAL IV PRN ×2 (06:22→16:50)
[2020-09-29] MEDS ORDERED: Potassium Bicarbonate/Cit Ac 20 MEQ TAB PO SCH (06:30)
[2020-09-29] MEDS: Amlodipine 10 MG TAB PER TUBE SCH (09:16)
[2020-09-29] MEDS: Famotidine 20 MG TAB PO SCH (09:16)
[2020-09-29] MEDS: predniSONE 20 MG TAB PO SCH (09:17)
[2020-09-29] MEDS: Apixaban 2.5 MG TAB PO SCH ×2 (09:17→20:28)
[2020-09-29] MEDS: Digoxin 0.5 MG/2 ML AMP SLOW IVP SCH (09:17)
[2020-09-29] MEDS: Pyridostigmine Bromide IR 60 MG TAB PER TUBE SCH ×3 (09:17→20:28)
[2020-09-29 11:49] LABS: Potassium 4.1 mmol/L (3.5-5.1)
[2020-09-30] MEDS: Albuterol Sulfate 2.5 mg/3 ml Neb NEB SCH ×5 (01:54→23:44)
[2020-09-30] MEDS: guaiFENesin 200 MG TAB PER TUBE SCH ×4 (02:04→20:37)
[2020-09-30] MEDS: Propofol 1,000 MG/100 ML VIAL IV PRN (05:17)
[2020-09-30 05:18] LABS: Hemoglobin 8.8 g/dL (12.0-16.0); Mean Corpuscular HGB CONC 31.9 g/dL (32.0-36.0); Mean Corpuscular Hemoglobin 27.7 pg (27.0-31.0); Mean Corpuscular Volume 86.7 fL (78.0-98.0); Mean Platelet Volume 8.3 fL (7.4-10.4); Platelet Count 206 thou/uL (130-400); RBC Distribution Width 15.3 % (11.5-14.5); Red Blood Cell (RBC) Count 3.18 mill/uL (4.20-5.40); White Blood Cell (WBC) Count 8.7 thou/uL (4.8-10.8)
[2020-09-30 05:25] LABS: Eosinophils 6 % (0-10); Lymphocytes 11 % (21-51); MDiff Complete? YES; Monocytes 5 % (0-10); Neutrophil 77 % (42-75); Platelet Morphology Comment Appears Adequate
[2020-09-30 05:26] LABS: Anion Gap 8 mmol/L (10-20); BUN (Urea Nitrogen) 31 mg/dL (9.8-20.1); Calc. Creatinine Clearance 74 mL/min (70-130); Calcium 8.3 mg/dL (7.8-10.44); Carbon Dioxide 30 mmol/L (23-31); Chloride 106 mmol/L (98-107); Glucose 81 mg/dL (83-110); Potassium 3.9 mmol/L (3.5-5.1); Sodium 140 mmol/L (136-145)
[2020-09-30] MEDS ORDERED: Furosemide 40 MG/4 ML VIAL SLOW IVP SCH (08:00)
[2020-09-30] MEDS: Digoxin 0.5 MG/2 ML AMP SLOW IVP SCH (08:27)
[2020-09-30] MEDS: Pyridostigmine Bromide IR 60 MG TAB PER TUBE SCH ×3 (08:27→20:37)
[2020-09-30] MEDS: predniSONE 5 MG TAB PO SCH (08:27)
[2020-09-30] MEDS: Famotidine 20 MG TAB PO SCH (08:27)
[2020-09-30] MEDS: Amlodipine 10 MG TAB PER TUBE SCH (08:27)
[2020-09-30] MEDS: Apixaban 2.5 MG TAB PO SCH ×2 (08:27→20:37)
[2020-09-30] MEDS: Scopolamine 1.5 mg/72 hour Patch TD SCH (15:45)
[2020-10-01] MEDS: guaiFENesin 200 MG TAB PER TUBE SCH ×4 (02:49→20:32)
[2020-10-01] MEDS: Propofol 1,000 MG/100 ML VIAL IV PRN ×4 (02:49→13:09)
[2020-10-01 04:58] LABS: Band 3 % (5-11); Hemoglobin 8.3 g/dL (12.0-16.0); Hypochromia SLIGHT = 6-15 cells (100X) (0-5/hpf); Lymphocytes 10 % (21-51); MDiff Complete? YES; Mean Corpuscular HGB CONC 31.3 g/dL (32.0-36.0); Mean Corpuscular Hemoglobin 27.1 pg (27.0-31.0); Mean Corpuscular Volume 86.7 fL (78.0-98.0); Mean Platelet Volume 8.1 fL (7.4-10.4); Monocytes 9 % (0-10); Neutrophil 78 % (42-75); Platelet Count 202 thou/uL (130-400); Platelet Morphology Comment Appears Adequate; RBC Distribution Width 15.2 % (11.5-14.5); Red Blood Cell (RBC) Count 3.04 mill/uL (4.20-5.40); White Blood Cell (WBC) Count 9.3 thou/uL (4.8-10.8)
[2020-10-01 05:07] LABS: Anion Gap 8 mmol/L (10-20); BUN (Urea Nitrogen) 34 mg/dL (9.8-20.1); Calc. Creatinine Clearance 71 mL/min (70-130); Calcium 8.6 mg/dL (7.8-10.44); Carbon Dioxide 31 mmol/L (23-31); Chloride 105 mmol/L (98-107); Glucose 95 mg/dL (83-110); Potassium 3.6 mmol/L (3.5-5.1); Sodium 140 mmol/L (136-145)
[2020-10-01] MEDS: Albuterol Sulfate 2.5 mg/3 ml Neb NEB SCH ×4 (06:56→23:14)
[2020-10-01] MEDS: Lorazepam 2 MG/ML VIAL SLOW IVP PRN ×2 (07:27→16:54)
[2020-10-01] MEDS: predniSONE 5 MG TAB PO SCH (08:13)
[2020-10-01] MEDS: Famotidine 20 MG TAB PO SCH (08:14)
[2020-10-01] MEDS: Amlodipine 10 MG TAB PER TUBE SCH (08:14)
[2020-10-01] MEDS: Pyridostigmine Bromide IR 60 MG TAB PER TUBE SCH ×3 (08:14→20:32)
[2020-10-01] MEDS: Digoxin 0.5 MG/2 ML AMP SLOW IVP SCH (09:15)
[2020-10-01] MEDS: Morphine 4 MG/ML VIAL SLOW IVP PRN (09:26)
[2020-10-01 10:24] LABS: BF Color Yellow; Body Fluid Source Thoracentesis Fluid; Clarity Hazy (Clear); Tube # EDTA
[2020-10-01 10:27] LABS: Fluid, Triglycerides 13 mg/dL (Not Available); Pleural Fluid, Amylase Less than 30 U/L (Not Available); Pleural Fluid, Glucose 102 mg/dL; Pleural Fluid, LDH 47 U/L (Not Available); Pleural Fluid, Protein 1.4 g/dL
[2020-10-01 10:38] LABS: RBC Count-Automated (BF) 41 /cu.mm; WBC/Nucleated-Auto (BF) 124 uL
[2020-10-01] MEDS: Apixaban 2.5 MG TAB PO SCH ×2 (10:55→20:32)
[2020-10-01 12:06] LABS: BF Segmented Neutrophils 19 %; Cell Count Non Hematic 78 %; Lymphocytes 3 %
[2020-10-02] MEDS: Propofol 1,000 MG/100 ML VIAL IV PRN ×2 (02:12→22:16)
[2020-10-02] MEDS: guaiFENesin 200 MG TAB PER TUBE SCH ×4 (02:13→20:47)
[2020-10-02 04:42] LABS: Hemoglobin 8.9 g/dL (12.0-16.0); Mean Corpuscular Hemoglobin 27.7 pg (27.0-31.0); Mean Corpuscular Volume 86.5 fL (78.0-98.0); Mean Platelet Volume 8.1 fL (7.4-10.4); Platelet Count 227 thou/uL (130-400); RBC Distribution Width 15.1 % (11.5-14.5); Red Blood Cell (RBC) Count 3.21 mill/uL (4.20-5.40); White Blood Cell (WBC) Count 11.7 thou/uL (4.8-10.8)
[2020-10-02 04:52] LABS: Lymphocytes 15 % (21-51); MDiff Complete? YES; Monocytes 4 % (0-10); Neutrophil 81 % (42-75); Platelet Morphology Comment Appears Adequate
[2020-10-02 04:59] LABS: Anion Gap 9 mmol/L (10-20); BUN (Urea Nitrogen) 30 mg/dL (9.8-20.1); Calc. Creatinine Clearance 72 mL/min (70-130); Calcium 8.2 mg/dL (7.8-10.44); Carbon Dioxide 31 mmol/L (23-31); Chloride 105 mmol/L (98-107); Glucose 88 mg/dL (83-110); Potassium 3.9 mmol/L (3.5-5.1); Sodium 141 mmol/L (136-145)
[2020-10-02] MEDS: Albuterol Sulfate 2.5 mg/3 ml Neb NEB SCH ×4 (08:21→23:35)
[2020-10-02] MEDS: Morphine 4 MG/ML VIAL SLOW IVP PRN (08:22)
[2020-10-02 08:42] LABS: Fluid, pH - Pleural Fld Greater than 7.50 (7.60 - 7.66)
[2020-10-02] MEDS: Amlodipine 10 MG TAB PER TUBE SCH (09:30)
[2020-10-02] MEDS: acetaZOLAMIDE Sodium 500 MG in Sodium Chloride 0.9% 50 ML IVPB SCH (09:30)
[2020-10-02] MEDS: Pyridostigmine Bromide IR 60 MG TAB PER TUBE SCH ×3 (09:30→20:47)
[2020-10-02] MEDS: predniSONE 5 MG TAB PO SCH (09:30)
[2020-10-02] MEDS: Famotidine 20 MG TAB PO SCH (09:30)
[2020-10-02] MEDS: Digoxin 0.5 MG/2 ML AMP SLOW IVP SCH (10:13)
[2020-10-02] MEDS: Apixaban 2.5 MG TAB PO SCH ×2 (10:13→20:47)
[2020-10-02 11:09] LABS: Fluid, Triglycerides 14 mg/dL (Not Available); Pleural Fluid, Amylase Less than 30 U/L (Not Available); Pleural Fluid, Glucose 100 mg/dL; Pleural Fluid, LDH 47 U/L (Not Available); Pleural Fluid, Protein 1.4 g/dL
[2020-10-02 11:35] LABS: RBC Count-Automated (BF) 41 /cu.mm; WBC/Nucleated-Auto (BF) 155 uL
[2020-10-02 11:36] LABS: BF Color Yellow; Body Fluid Source Thoracentesis Fluid; Clarity Hazy (Clear); Tube # EDTA
[2020-10-02 11:49] LABS: BF Segmented Neutrophils 21 %; Cell Count Non Hematic 66 %; Lymphocytes 13 %
[2020-10-02 14:31] VITALS: BMI 24.9
[2020-10-03] MEDS: guaiFENesin 200 MG TAB PER TUBE SCH ×4 (03:27→20:57)
[2020-10-03 05:01] LABS: Anion Gap 7 mmol/L (10-20); BUN (Urea Nitrogen) 32 mg/dL (9.8-20.1); Calc. Creatinine Clearance 68 mL/min (70-130); Calcium 8.4 mg/dL (7.8-10.44); Carbon Dioxide 30 mmol/L (23-31); Chloride 106 mmol/L (98-107); Glucose 99 mg/dL (83-110); Potassium 3.7 mmol/L (3.5-5.1); Sodium 139 mmol/L (136-145)
[2020-10-03 05:25] LABS: Band 13 % (5-11); Eosinophils 5 % (0-10); Lymphocytes 10 % (21-51); MDiff Complete? YES; Mean Corpuscular HGB CONC 31.4 g/dL (32.0-36.0); Mean Platelet Volume 8.1 fL (7.4-10.4); Monocytes 4 % (0-10); Neutrophil 68 % (42-75); Platelet Count 252 thou/uL (130-400); RBC Distribution Width 15.1 % (11.5-14.5); Red Blood Cell (RBC) Count 2.97 mill/uL (4.20-5.40); White Blood Cell (WBC) Count 11.1 thou/uL (4.8-10.8)
[2020-10-03] MEDS: Propofol 1,000 MG/100 ML VIAL IV PRN (07:30)
[2020-10-03] MEDS: Albuterol Sulfate 2.5 mg/3 ml Neb NEB SCH ×3 (07:45→18:50)
[2020-10-03] MEDS ORDERED: DC Sedation Protocol FS ONE (08:08)
[2020-10-03] MEDS ORDERED: Morphine 4 MG/ML VIAL SLOW IVP PRN (08:12)
[2020-10-03] MEDS: Amlodipine 10 MG TAB PER TUBE SCH (08:16)
[2020-10-03] MEDS: predniSONE 5 MG TAB PO SCH (08:16)
[2020-10-03] MEDS: Pyridostigmine Bromide IR 60 MG TAB PER TUBE SCH ×3 (08:16→20:57)
[2020-10-03] MEDS: Famotidine 20 MG TAB PO SCH (08:16)
[2020-10-03] MEDS: Apixaban 2.5 MG TAB PO SCH ×2 (08:21→20:57)
[2020-10-03] MEDS: Digoxin 0.5 MG/2 ML AMP SLOW IVP SCH (08:45)
[2020-10-03] MEDS: acetaZOLAMIDE Sodium 500 MG in Sodium Chloride 0.9% 50 ML IVPB SCH (08:53)
[2020-10-03] MEDS: Scopolamine 1.5 mg/72 hour Patch TD SCH (14:27)
[2020-10-04] MEDS: Albuterol Sulfate 2.5 mg/3 ml Neb NEB SCH ×2 (00:24→06:42)
[2020-10-04] MEDS: guaiFENesin 200 MG TAB PER TUBE SCH ×2 (02:03→08:27)
[2020-10-04] MEDS: Famotidine 20 MG TAB PO SCH (08:27)
[2020-10-04] MEDS: Apixaban 2.5 MG TAB PO SCH (08:27)
[2020-10-04] MEDS: predniSONE 5 MG TAB PO SCH (08:27)
[2020-10-04] MEDS: Amlodipine 10 MG TAB PER TUBE SCH (08:27)
[2020-10-04] MEDS: Pyridostigmine Bromide IR 60 MG TAB PER TUBE SCH (08:28)
[2020-10-04] MEDS: Digoxin 0.5 MG/2 ML AMP SLOW IVP SCH (09:23)
[2020-10-04] MEDS ORDERED: Albuterol Sulfate 2.5 mg/3 ml Neb NEB PRN (10:25)
[2020-10-05 07:28] VITALS: BP 154/69; TEMP 98
[2020-10-05] MEDS: Digoxin 0.5 MG/2 ML AMP SLOW IVP SCH (07:47)
[2020-10-05] MEDS ORDERED: Lorazepam 2 MG/ML VIAL SLOW IVP PRN (08:28)
[2020-10-05] MEDS ORDERED: Albuterol Sulfate 2.5 mg/3 ml Neb NEB SCH (15:00)
== END 2020-10-05 16:50 | disposition hospice, inpatient (51) | DRG 870 ==
LOC: ERS 18:38 → CCU 18:50 → T4-A 10-03 12:11
PROVIDERS: ADMIT Family Medicine; ATTEND Family Medicine
PROC: 5A1955Z Respiratory Ventilation, Greater than 96 Consecutive Hours (ICD-10-PCS; principal; 2020-09-20)
PROC: 30243S1 Transfusion of Nonautologous Globulin into Central Vein, Percutaneous Approach (ICD-10-PCS; 2020-09-20)
PROC: 06HY33Z Insertion of Infusion Device into Lower Vein, Percutaneous Approach (ICD-10-PCS; 2020-09-20)
PROC: 0W993ZX Drainage of Right Pleural Cavity, Percutaneous Approach, Diagnostic (ICD-10-PCS; 2020-10-01)
PROC: 0W9B3ZX Drainage of Left Pleural Cavity, Percutaneous Approach, Diagnostic (ICD-10-PCS; 2020-10-02)
DX: A41.9 Sepsis, unspecified organism (principal); J96.01 Acute respiratory failure with hypoxia; G70.01 Myasthenia gravis with (acute) exacerbation; J18.9 Pneumonia, unspecified organism; J96.22 Acute and chronic respiratory failure with hypercapnia; N39.0 Urinary tract infection, site not specified; I50.32 Chronic diastolic (congestive) heart failure; I48.11 Longstanding persistent atrial fibrillation; E87.3 Alkalosis; E46 Unspecified protein-calorie malnutrition; J91.8 Pleural effusion in other conditions classified elsewhere; Z51.5 Encounter for palliative care; Z66 Do not resuscitate; N18.2 Chronic kidney disease, stage 2 (mild); D63.8 Anemia in other chronic diseases classified elsewhere; Z82.49 Family history of ischemic heart disease and other diseases of the circulatory system; I08.3 Combined rheumatic disorders of mitral, aortic and tricuspid valves; E87.6 Hypokalemia; T50.2X5A Adverse effect of carbonic-anhydrase inhibitors, benzothiadiazides and other diuretics, initial encounter; Z68.25 Body mass index [BMI] 25.0-25.9, adult; Z79.01 Long term (current) use of anticoagulants; Z90.49 Acquired absence of other specified parts of digestive tract; R62.7 Adult failure to thrive; Z20.822 Contact with and (suspected) exposure to COVID-19; Z93.3 Colostomy status; Z78.1 Physical restraint status
CPT/HCPCS: 0240U; 36415; 36416; 36556; 36600; 51702; 70450; 71045; 71250; 80048; 80053; 80202; 80306; 80307; 81003; 81015; 82150; 82553; 82805; 82945; 83605; 83615; 83735; 83880; 83986; 84145; 84157; 84478; 84484; 85007; 85025; 85027; 85060; 87040; 87070; 87077; 87086; 87116; 87186; 87205; 87206; 88112; 88305; 88341; 88342; 89051; 93005; 93306; 94002; 94003; 94640; 95712; 95819; 95957; 96365; 96367; 96368; 96375; 96376; 99292; J0692; J1120; J1160; J1568; J1642; J1720; J1940; J2060; J2270; J2704; J3010; J3370; J3475; J3490; J7050; J7512; J7611; S0028

== ENCOUNTER 2020-10-05 17:02 | Inpatient (IN) | payer OTHER ==
[2020-10-05] MEDS ORDERED: Lorazepam 1 MG TAB PO PRN (17:21)
[2020-10-05] MEDS ORDERED: Morphine 4 MG/ML VIAL SLOW IVP PRN (17:22)
[2020-10-05] MEDS ORDERED: Haloperidol Lactate 5 MG/ML VIAL SLOW IVP PRN (17:30)
[2020-10-05] MEDS ORDERED: Ondansetron PF 4 MG/2 ML Vial IVP PRN (17:30)
[2020-10-05] MEDS ORDERED: Lorazepam 2 MG/ML VIAL SLOW IVP PRN (17:30)
[2020-10-05] MEDS ORDERED: Scopolamine 1.5 mg/72 hour Patch TOP PRN (17:30)
[2020-10-05 20:01] VITALS: TEMP 97.8
[2020-10-06 02:03] VITALS: BP 174/73
[2020-10-06] MEDS ORDERED: Bisacodyl 10 MG SUPP PR SCH (09:00)
== END 2020-10-06 04:00 | disposition expired | DRG 951 ==
LOC: T4-A 17:02
PROVIDERS: ADMIT Family Medicine; ATTEND Family Medicine
DX: Z51.5 Encounter for palliative care (principal); Z66 Do not resuscitate; J96.01 Acute respiratory failure with hypoxia; R65.11 Systemic inflammatory response syndrome (SIRS) of non-infectious origin with acute organ dysfunction; I50.32 Chronic diastolic (congestive) heart failure; B02.29 Other postherpetic nervous system involvement; D63.8 Anemia in other chronic diseases classified elsewhere; I08.3 Combined rheumatic disorders of mitral, aortic and tricuspid valves; G70.00 Myasthenia gravis without (acute) exacerbation; I48.91 Unspecified atrial fibrillation; Z82.49 Family history of ischemic heart disease and other diseases of the circulatory system; Z90.49 Acquired absence of other specified parts of digestive tract; Z90.89 Acquired absence of other organs; Z93.3 Colostomy status; Z79.899 Other long term (current) drug therapy; Z79.01 Long term (current) use of anticoagulants
CPT/HCPCS: J2270